=== PATIENT | female | born 1980 | race African-American/Black ===

== ENCOUNTER 2022-06-05 22:57 | Emergency (ER) | payer MEDICAID, SELFPAY ==
--- NOTE | ~2022-06-05 | XR_ITS ---
EXAMINATION: XR lumbar spine 2-3V, XR sacrum coccyx min 2V CLINICAL INFORMATION: Reason for Exam s/p fall COMPARISON: None. TECHNIQUE: 3 views of the lumbar spine and 3 views of the sacrum/coccyx FINDINGS: No acute fracture or traumatic malalignment. Minimal levoconvex lumbar curvature. Vertebral body heights maintained. Small osteophytes present throughout the spine. Mild facet arthropathy throughout the lumbar spine. Mild bilateral sacral arthrosis. Sacrum intact. Sacrococcygeal alignment maintained. Soft tissues unremarkable XR/XR sacrum coccyx min 2V IMPRESSION: * No acute findings. * Lumbar spondylosis as described.
--- NOTE | ~2022-06-05 | XR_ITS ---
EXAMINATION: XR lumbar spine 2-3V, XR sacrum coccyx min 2V CLINICAL INFORMATION: Reason for Exam s/p fall COMPARISON: None. TECHNIQUE: 3 views of the lumbar spine and 3 views of the sacrum/coccyx FINDINGS: No acute fracture or traumatic malalignment. Minimal levoconvex lumbar curvature. Vertebral body heights maintained. Small osteophytes present throughout the spine. Mild facet arthropathy throughout the lumbar spine. Mild bilateral sacral arthrosis. Sacrum intact. Sacrococcygeal alignment maintained. Soft tissues unremarkable XR/XR lumbar spine 2-3V IMPRESSION: * No acute findings. * Lumbar spondylosis as described.
[2022-06-05 23:00] VITALS: BP 142/68; PULSE 75; RESP 18; TEMP 37; O2SAT 99; BMI 28.1
--- NOTE | 2022-06-06 00:13 | ED.FALL ---
HPI - Fall General Chief Complaint: Fall Stated Complaint: Fall Time Seen by Provider: 06/06/22 00:05 Source: patient Mode of arrival: ambulatory Limitations: no limitations History of Present Illness HPI Narrative: Patient slipped on a puddle of water in mall around 15:30 complaining of pain in tailbone patient does have chronic back pain able to ambulate no motor deficit no bladder or bowel involvement also complaining of slight pain in the right wrist without any deformity no other significant injury no head injury no loss of consciousness Related Data Previous Rx's Medication Instructions Recorded ibuprofen 600 mg tablet 600 mg PO Q6H PRN fever or pain 06/06/22 #30 tabs Allergies Allergy/AdvReac Type Severity Reaction Status Date / Time meperidine [From DEMEROL] Allergy Intermediate RASH Verified 06/05/22 22:59 vancomycin [VANCOMYCIN] Allergy Intermediate REDNESS, Verified 06/05/22 22:59 ITCHING, THROAT SWELLS, hives, swelling Review of Systems Review of Systems: Yes all other systems are reviewed and are negative [facility] Social History Social History Use of substances other than those prescribed or required for medical reasons: No Advance Directives: No Advance Directives Information Provided: Yes Physical Exam Vital Signs: Vital Signs: Last Vital Signs Temp 98.6 F 06/05/22 23:00 Pulse 59 06/06/22 01:40 Resp 16 06/06/22 01:40 BP 132/73 06/06/22 01:40 Pulse Ox 99 06/05/22 23:00 O2 Del Method 06/05/22 23:00 BMI result Body Mass Index 28.1 Appearance: Alert. Oriented X3. No acute distress. Eyes: PERRLA, ENT: Pharynx normal. Oral Mucosa moist Neck: Normal inspection. Neck supple. no midline tenderness CVS: Normal heart rate and rhythm. Pulses normal. Respiratory: No respiratory distress. Equal air entry bilateral, no wheezing/rales/rhonchi Abdomen: Soft and nontender. Bowel sounds are present, no mass palpable, no CVA tenderness Skin: Skin warm and dry. Normal skin color. Normal skin turgor. Extremities: No lower extremity edema. No calf tenderness back; diffuse muscle spasm tender in coccyx area Neuro: Oriented X 3. No motor deficit. No sensory deficit.No cerebellar signs , cranial nerves II-XII intact Medications Administered Discontinued Medications Generic Name Dose Route Start Last Admin Trade Name Freq PRN Reason Stop Dose Admin Oxycodone HCl 5 mg 06/06/22 01:24 06/06/22 01:33 Oxycodone Hcl Immed Release 5 Mg Tablet PO 06/06/22 01:25 5 mg ONCE ONE Administration Medical Decision Making Medical Decision Making MDM Narrative: X-ray negative for fracture , discharge patient home on ibuprofen Discharge Plan Discharge Clinical Impression: Coccygeal contusion Patient Disposition: Home, Self-Care Additional Instructions: X-rays negative for fracture Ibuprofen for pain Use Air donut to sit on Prescriptions: New ibuprofen 600 mg tablet 600 mg PO Q6H PRN (Reason: fever or pain) Qty: 30 0RF Interventions: ED Discharge Assessment Last Done: 06/06/22 01:43 Discharge Date/Time: 06/06/22 01:44
[2022-06-06] MEDS: oxyCODONE HCl Immed Release 5 MG TABLET PO (01:33)
[2022-06-06 01:40] VITALS: BP 132/73; PULSE 59; RESP 16
--- NOTE | 2022-06-06 01:42 | PC.NURSE ---
Pt a&o, no sob or chest pain, pt medicated per Mar, pt able to ambulate with a steady gait on discharge, no sign of distress. Reviewed charge instructions with patient, pt verbalized understanding.
== END 2022-06-06 01:44 | disposition home or self-care (01) ==
PROVIDERS: Emergency Provider Internal Medicine; PCP Internal Medicine
DX: S30.0XXA Contusion of lower back and pelvis, initial encounter (principal); W18.39XA Other fall on same level, initial encounter; Y93.89 Activity, other specified; Y92.59 Other trade areas as the place of occurrence of the external cause; Y99.9 Unspecified external cause status
CPT/HCPCS: 72100; 72220; 99283; 99284

== ENCOUNTER 2024-03-16 16:21 | Emergency (ER) | payer MEDICAID, SELFPAY ==
[2024-03-16 16:41] VITALS: BP 148/79; PULSE 74; RESP 16; TEMP 36.4; O2SAT 99; BMI 21.0
--- NOTE | 2024-03-16 16:42 | ED_ITS ---
HPI - Skin/Abscess/Foreign Bdy General Chief complaint: Skin/Abscess/Foreign Body Stated complaint: body rash Time Seen by Provider: 03/16/24 19:21 Source: patient Limitations: no limitations History of Present Illness ED Provider: Kacy yoder PA-C HPI narrative: 43-year-old otherwise healthy female presents with groin rash x3 days. Patient states she has had a red itchy rash within the inguinal folds for 3 days. Denies new bath or body products, new medication new food. Denies other people in her presence with the same rash. Denies vaginal discharge, abdominal pain, or known risk for STD. No dysuria. Related Data Previous Rx's ?Medication ?Instructions ?Recorded ibuprofen 600 mg tablet 600 mg PO Q6H PRN fever or pain 06/06/22 #30 tabs Allergies Allergy/AdvReac Type Severity Reaction Status Date / Time meperidine [From DEMEROL] Allergy Intermediate RASH Verified 03/16/24 16:42 vancomycin [VANCOMYCIN] Allergy Intermediate REDNESS, Verified 03/16/24 16:42 ITCHING, THROAT SWELLS, hives, swelling Review of Systems 2 Review of Systems: Yes all other systems are reviewed and are negative Constitutional: Constitutional: Denies fatigue and Denies fever(s) Cardiovascular: Cardiovascular: Denies chest pain and Denies dyspnea Respiratory: Respiratory: Denies dyspnea Gastrointestinal: Gastrointestinal: Denies abdominal pain and Denies nausea Genitourinary: Genitourinary: Denies dysuria, Denies pelvic pain, Denies vaginal discharge and Denies vaginal odor Endocrine: Endocrine: Denies fatigue PMF Past Medical History Attestation statement: The following information was validated with the patient. Social History Social History Smoked in Last 30 Days: No Use of substances other than those prescribed or required for medical reasons: No Advance Directives: No Advance Directives Information Provided: Yes Do you have a plan to hurt others: No Plan Patient : No Physical Exam Vital Signs: Vital Signs: Last Vital Signs Temp 97.6 F 03/16/24 16:41 Pulse 74 03/16/24 16:41 Resp 16 03/16/24 16:41 BP 148/79 H 03/16/24 16:41 Pulse Ox 99 03/16/24 16:41 O2 Del Method Room Air 03/16/24 16:41 BMI result Body Mass Index 21.0 Const: Other: Alert, well-appearing Orientation/consciousness: patient oriented x3 Resp: Other: Nonlabored respiration Cardio: Other: Normal peripheral perfusion : Other: There was no rash within the inguinal region, over the external genitalia or perineum. Skin: Other: Warm dry no rash. Neuro: General: patient oriented x3, no focal motor deficits and CN's II-XI intact bilaterally Psych: Other: Cooperative Course Course Course Narrative: This is an RME: Additional HPI, ROS, PE not included below will be deferred to primary provider. RME assessment and note performed by: Erna Man PA-C This is a 43-year-old female, with a hx of depression, who presents to the ER with complaints of bilateral thigh rash. Reports rash has been present x 2days. Does report it goes into inner groin. She has no urinary symptoms. concerned for sti Plan: UA, upreg, CT/ng Medical Decision Making Medical Decision Making MDM Narrative: 43-year-old otherwise healthy female presents with groin rash x3 days. Patient states she has had a red itchy rash within the inguinal folds for 3 days. Denies new bath or body products, new medication new food. Denies other people in her presence with the same rash. Denies vaginal discharge, abdominal pain, or known risk for STD. No dysuria. No relevant chronic issues History: Per patient I have considered the following differential diagnoses: Folliculitis, contact dermatitis, allergic reaction, candidal infection, STD, Plan: The patient does not have a rash, she is hyper fixated on prominent hair follicles within this area. She is very relieved. When she presented to triage, a urinalysis and gonorrhea chlamydia screen were obtained. The patient knows that if she screens positive she will be contacted for antibiotic therapy. This is unlikely given she has no symptoms. I have independently reviewed the following tests: Labs: Urinalysis, urine not infected Lab Data Labs: Lab Results 03/16/24 Range/Units 18:11 Urine Color Yellow Urine Appearance Clear Urine pH 6.0 (5.0-9.0) Ur Specific Addison 1.025 (1.005-1.025) Urine Protein Negative (Neg-Trace) mg/dL Urine Glucose (UA) Negative (Negative) mg/dL Urine Ketones Trace (Negative) mg/dL Urine Blood Negative (Negative) Urine Nitrite Negative (Negative) Ur Leukocyte Esterase Negative (Negative) Urine Test NEGATIVE (NEGATIVE) Discharge Plan Discharge Clinical Impression: Dry skin Patient Disposition: Home, Self-Care Additional Instructions: You do not have a rash, your skin could simply be dry due to the weather. You can use an [id number] mild lotion such as Aveeno, this helps with dry skin/itchy skin. You have testing pending, you were screened for gonorrhea and chlamydia. If you test positive for either organism, you will be contacted by the facility we will send antibiotics to your pharmacy. Otherwise follow up with your primary care provider as needed. Prescriptions: No Action ibuprofen 600 mg tablet 600 mg PO Q6H PRN (Reason: fever or pain) Qty: 30 0RF Print Language: Ghanaian
[2024-03-16 18:20] LABS: Appearance Urine Clear; Color Urine Yellow; Glucose Urine UA Negative (Negative); Leukocyte Esterase Urine Negative (Negative); Nitrite Urine Negative (Negative); Specific Gravity - Urine 1.025 (1.005-1.025); Urine Blood Negative (Negative); Urine Ketones Trace mg/dL (Negative); Urine Protein Negative (Neg-Trace)
[2024-03-16 18:22] LABS: UPreg QC Valid YES; Urine Pregnancy NEGATIVE (NEGATIVE)
[2024-03-16 21:27] VITALS: BP 117/83; PULSE 64; RESP 18; TEMP 36.6; O2SAT 99
[2024-03-16 21:29] VITALS: BP 117/83; PULSE 64; RESP 18; TEMP 36.6; O2SAT 99
[2024-03-17 14:02] LABS: CT PCR NOT DETECTED (Not Detect.); NG PCR NOT DETECTED (Not Detect.)
== END 2024-03-16 21:31 | disposition home or self-care (01) ==
PROVIDERS: Physician Assistant Medical; Emergency Provider Internal Medicine; PCP Internal Medicine
DX: L50.6 Contact urticaria (principal); Z79.899 Other long term (current) drug therapy
CPT/HCPCS: 81003; 81025; 87491; 87591; 99283; 99284

== ENCOUNTER 2024-07-14 12:50 | Outpatient (REF) | payer MEDICAID, SELFPAY ==
--- NOTE | ~2024-07-14 | XR_ITS ---
EXAMINATION: XR KNEE AP STANDING CLINICAL INFORMATION: Chronic bilateral knee pain. COMPARISON: None available. TECHNIQUE: AP bilateral standing, bilateral sunrise, and lateral views of the knees were obtained. FINDINGS: RIGHT KNEE: No fracture, dislocation, or suspicious bone lesion. There is a bone island in the mid tibial metaphysis. Mild medial and lateral compartment osteoarthrosis, with more significant changes in the patellofemoral compartment involving the lateral patellar facet. There are small marginal osteophytic spurs in all 3 compartments. There is mild spurring of the tibial spines. There is no evidence of joint effusion. Soft tissues demonstrate no abnormalities. LEFT KNEE: No fracture, dislocation, or suspicious bone lesion. Mild medial and lateral compartment osteoarthrosis, with more significant changes in the patellofemoral compartment involving the lateral patellar facet. There are small marginal osteophytic spurs in all 3 compartments. There is mild spurring of the tibial spines. There is no evidence of joint effusion. Soft tissues demonstrate no abnormalities. XR/XR knee standing BI IMPRESSION: 1. No acute bony abnormalities. 2. Symmetric mild to moderate bilateral tricompartmental osteoarthrosis, most significant in the patellofemoral compartments. Electronically signed by: Aldo Byrne MD 07/14/2024 02:03 PM EDT
--- OUTSIDE RECORDS SUMMARY | 2024-07-14 15:41 | XMS_ITS | Clinical Summary ---
Author Organization [facility] Address [address] [place] [address] Care Team Providers Care Shipwright Name Role Phone Unavailable Primary Care Provider Unavailabl e Surgical History Surgery Date Site/Laterality Comments KIDNEY STONE SURGERY 06/05/2017 Right PROCEDURE: MS NEPHROLITHOTOMY REMOVAL CALCULUS OTHER SURGICAL HISTORY PROCEDURE: HISTORICAL D&C; COMMENT: x 3 SECTION PROCEDURE: HISTORICAL Medical History Medical History Date Comments Kidney stones 2014 DX:Kidney stones History of abnormal cervical Pap smear 2003 DX:History of abnormal cervical Pap smear; COMMENT: LESIA I (ascus +HPV 2002) Family History Medical History Relation Name Comments Depression Brother 1 Depression Brother 2 No Known Problems Father unknown Dementia Maternal Grandfather No Known Problems Maternal Grandmother Depression Mother No Known Problems Paternal Grandfather do esnt know No Known Problems Paternal Grandmother do esnt know Depression Sister Breast cancer Neg Hx Cervical cancer Neg Hx Colon cancer Neg Hx Ovarian cancer Neg Hx Prostate cancer Neg Hx Uterine cancer Neg Hx Relation Name Status Comments Brother 1 Alive Brother 2 Father Other Maternal Grandfather Maternal Grandmother Alive Mother Alive Paternal Grandfather Other Paternal Grandmother Other Sister Alive Social History Tobacco Use Types Packs/Day Years Used Date Smoking Tobacco: Never Smokeless Tobacco: Never Alcohol Use Standard Drinks/Week Comments No 0 (1 standard drink = 0.6 oz pur e alcohol) Comments Unknown Sex and Gender Information Value Date Recorded Sex Assigned at Not on file Legal Sex Female 9:29 AM EST Gender Identity Not on file Sexual Orientation Not on file Obstetrics History Plan of Treatment Health Maintenance Due Date Last Done Comments Breast Cancer Screening 1981 Hepatitis B Vaccines (1 of 3 - 19+ 3-dose series) 2000 Cervical Cancer Screening: P ap Smear 10/14/2022 10/15/2019 COVID-19 Vaccine (2023-2 5 season) 2023 Influenza Vaccine (Season Ended) 2024 02/11/20 20 DTaP,Tdap,and Td Vaccines (2 - Td or Tdap) 02/10/2030 02/11/2020 HIB Vaccines Aged Out No longer eligi ble based on patient's age to complete this topic HPV Vaccines Aged Out No longer eligi ble based on patient's age to complete this topic Hepatitis A Vaccines Aged Out No long er eligible based on patient's age to complete this topic IPV Vaccines Aged Out No longer eligi ble based on patient's age to complete this topic MMR Vaccines Aged Out No longer eligi ble based on patient's age to complete this topic Meningococcal ACWY Vaccine Aged Out N o longer eligible based on patient's age to complete this topic Meningococcal B Vaccine Aged Out No l onger eligible based on patient's age to complete this topic Pneumococcal Vaccine: Pediat rics (0 to 5 Years) and At-Risk Patients (6 to 64 Years) Aged Out No longer eligi ble based on patient's age to complete this topic RSV Immunization Patients Un magdiel 20 months Aged Out No longer eligible b ased on patient's age to complete this topic Varicella Vaccines Aged Out No longer eligible based on patient's age to complete this topic Procedures Procedure Name Priority Date/Time Associated Diagnosis Comments PAP SMEAR Routine 10/15/2019 from Last 3 Months or Most Recently Relevant to Health Maintenance Results * Pap smear (10/15/2019) 10/15/2019 Narrative HISTORICAL TESTING LAB RESULTING AGENCY - 10/26/2019 12:41 PM EDT [id number] THINPREP PAP, IMAGED: NEGATIVE FOR SQUAMOUS INTRAEPITHELIAL LESION AND MALIGNANCY . REACTIVE CELLULAR CHANGES. ALFREDO CLAY(ASCP) (CASE SCREENED 10 19 2019) FELIZ STUBBS M.D. , PATHOLOGIST (CASE ELECTRONICALLY SIGNED 10 22 2019) RESULT OF APTIMA HIGH RISK HPV ASSAY: HIGH RISK HPV: ??NEGATIVE (SEROTYPES 16,18,31,33,35,39,45,51,52,56,58,59,66,68) COMPLETED ON 2019-10-16 ADEQUACY: SATISFACTORY ENDOCERVICAL/TRANSFORMATION ZONE COMPONENT PRESENT. SOURCE: THINPREP PAP HPV ANY DX: ??REFLEX 16 AND 18, CERVICAL, IMAGED CLINICAL INFORMATION: HPV ANY DIAGNOSIS. HORMONES, PAP HX NEG, LMP 07/20/19 [Z12.4] us Amanda Gil MD LAB CYTOLOGY ORDERABLES Fin al Result HISTORICAL TESTING LAB RESULTING AGENCY from Last 3 Months or Most Recently Relevant to Health Maintenance
--- OUTSIDE RECORDS SUMMARY | 2024-07-14 15:41 | XMS_ITS | Encounter Summary ---
Author Organization [employer] Address [address] [place] [address] Care Team Providers Care Cook Relief Name Role Phone Gisel Wise MD Primary Care Provide r Reason for Referral * Imaging (Routine) - Authorized Specialty Diagnoses / Procedures Referred By Briseida t Referred To Contact Radiology Diagnoses Breast cancer screening by mammogram Procedures BI Mammogram Screening Tomosynthesis Bilateral Gisel Wise MD [address] [place] [phone] Phone: tel: fax: [address] Phone: tel: fax: Referral ID Status Reason Start Date Expiration Date V isits Requested Visits Authorized [id number] Authorized 07/14/2024 07/14/2025 1 1 * Consultation (Routine) - Authorized Specialty Diagnoses / Procedures Referred By Contac t Referred To Contact Obstetrics and Gynecology Diagnoses PCB (post coital bleeding) Gisel Wise MD [address] [place] [address] Phone: tel: fax: [facility] [address] 5[address] (Main Hospital Entrance) [place], [place] Phone: tel: fax: Referral ID Status Reason Start Date Expiration Date Visits Requested Visits Authorized [id number] Authorized Specialty Services Required 07/14/2024 07/14/2025 6 6 Reason for Visit * Reason Comments Follow-up Encounter Details Date Type Department Care Team ([facility] st Contact Info) Description 07/14/2024 11:30 AM EDT Office Visit [facility] [address] [place] [address] Gisel Wise MD [address] [place], [place] [phone] PCB (post coital bleeding) (Primary Dx); Tuberculosis screening; Breast cancer screening by mammogram; Initiation of Depo Provera; Bilateral chronic knee pain Social History Tobacco Use Types Packs/Day Years Used Date Smoking Tobacco: Never Smokeless Tobacco: Never Tobacco Cessation:Counseling Given: Not Answered Housing Stability Answer Date Recorded What is your housing situation today? I have tatianaanthony moses 07/14/[address] you li ve. Do you have problems with any of the following? None of the above 07/14/2024 Food Insecurity Answer Date Recorded Within the past 12 months, y ou worried that your food would run out before you got money to buy more: Often true 07/14/2024 Within the past 12 months,th e food you bought just didn't last and you didn't have enough money to get more: Often true Transportation Answer Date Recorded In the past 12 months, has l ack of transportation kept you from medical appts, meetings, work or from getting things needed for daily living? No 07/14/2024 Utilities Answer Date Recorded In the past 12 months, has t he electric, gas, oil or water company threatened to shut off services in your home? I am not sure 07/14/2024 Internet Access Answer Date Recorded Internet Access Q1 Yes 07/14/2024 Internet Access Q2 Not on file 07/14/2024 Comments Unknown Sex and Gender Information Value Date Recorded Sex Assigned at Female 01/29/2022 10:14 AM EDT Legal Sex Female 10:14 AM EDT Gender Identity Female 01/29/2022 10:14 AM EDT Sexual Orientation Straight 06/06/2022 11 :12 AM EST documented as of this encounter Last Filed Vital Signs Vital Sign Reading Time Taken Comments Blood Pressure 124/72 07/14/2024 11:38 AM EDT Pulse 72 07/14/2024 11:38 AM EDT Temperature 36.3 ??C (97.4 ??F) 07/14/2024 11:38 AM E DT Respiratory Rate 18 07/14/2024 11:38 AM EDT Oxygen Saturation 100% 07/14/2024 11:38 AM EDT Inhaled Oxygen Concentration - - Weight 72.8 kg (160 lb 9.6 oz) 07/14/2024 11:38 AM EDT Height 167.6 cm (5' 6 ) 07/14/2024 11:38 AM EDT Body Mass Index 25.92 07/14/2024 11:38 AM EDT documented in this encounter Progress Notes * Gisel Oliveira MD - 07/14/2024 11:30 AM EDT SUBJECTIVE: Deirdre Dolan is a 43 y.o. year old female who presents for Follow up . Acute Concerns: Patient has a h/o post coital bleeding for this reason she was referred to Gynecology she had serial of PAS, colposcopy and procedure done , problem resolved but now she is again having post coital bleeding Patient would like to re-initiate again depo-provera Patient today also c/o chronic bilateral knee pain reports it is sometimes difficult for her to bend her knees and do her regular activities Patient also requesting today physical exam appointment because she wants to go back to college Social History Social History Narrative Not on file Patient Active Problem List Diagnosis Abscess Cellulitis of face PCB (post coital bleeding) Tuberculosis screening Breast cancer screening by mammogram Initiation of Depo Provera Bilateral chronic knee pain No family history on file. Review of Systems Constitutional: Negative. HENT: Negative. Respiratory: Negative. Cardiovascular: Negative. Genitourinary: Postcoital bleeding Musculoskeletal: Positive for arthralgias. OBJECTIVE: Vitals: 07/14/24 1138 BP: 124/72 BP Location: Left arm Patient Position: Sitting BP Cuff Size: Adult Pulse: 72 Resp: 18 Temp: 97.4 ??F (36.3 ??C) TempSrc: Temporal SpO2: 100% Weight: 160 lb 9.6 oz (72.8 kg) Height: 5' 6 (1.676 m) Physical Exam Constitutional: Appearance: Normal appearance. Cardiovascular: Rate and Rhythm: Normal rate and regular rhythm. Pulmonary: Effort: Pulmonary effort is normal. Breath sounds: Normal breath sounds. Abdominal: General: Abdomen is flat. Palpations: Abdomen is soft. Musculoskeletal: Right lower leg: No edema. Left lower leg: No edema. Neurological: Mental Status: She is alert. Follow Up: No follow-ups on file. No current outpatient medications on file prior to visit. No current facility-administered medications on file prior to visit. Problem List Items Addressed This Visit PCB (post coital bleeding) - Primary Relevant Orders Bacterial Vaginosis Panel Chlamydia/N. Gonorrhoeae RNA, TMA, Urogenitial Referral to Obstetrics / Gynecology Tuberculosis screening Relevant Orders T-SPOT??.TB Breast cancer screening by mammogram Relevant Orders BI Mammogram Screening Tomosynthesis Bilateral Initiation of Depo Provera Medication side effects were reviewed with patient Relevant Medications medroxyPROGESTERone (Depo-Provera) 150 MG/ML injection Bilateral chronic knee pain X-rays ordered today patient will be contacted with results Relevant Orders XR Knee 4+ Views Left XR Knee 4+ Views Right documented in this encounter Miscellaneous Notes * Assessment & Plan Note - Gisel Oliveira MD - 07/14/2024 1:10 PM EDT Associated Problem(s): Bilateral chronic knee pain X-rays ordered today patient will be contacted with results * Assessment & Plan Note - Gisel Oliveira MD - 07/14/2024 1:10 PM EDT Associated Problem(s): Initiation of Depo Provera Medication side effects were reviewed with patient documented in this encounter Plan of Treatment Upcoming Encounters Date Type Department Care Team (Late st Contact Info) Description 07/27/2024 9:30 AM EDT Clinical Support [facility] [address] [place] [address] Scheduled Orders Name Type Priority Associated Diagnoses Orde r Schedule Bacterial Vaginosis Panel Microbiology Routine PCB (post coital bleeding) Ordered: 07/14/2024 Chlamydia/N. Gonorrhoeae RNA, TMA, Urogenitial Microbiology Routine PCB (post coital bleeding) Ordered: 07/14/2024 T-SPOT??.TB Lab Routine Tuberculosis screening Expected: 07/14/2024 (Approximate), Expires: 07/14/2025 BI Mammogram Screening Tomosynthesis Bilateral Imaging Routine Breast cancer screening by mammogram Expected: 07/14/2024, Expires: 09/13/2025 XR Knee 4+ Views Left Imaging Routine Bilateral chronic knee pain Expected: 07/14/2024, Expires: 07/14/2025 Scheduled Referrals Name Type Priority Associated Diagnoses Order Schedule Referral to Obstetrics / Gynecology Outpatient Referral Routine PCB (post coital bleeding) Expected: 07/14/2024 (Approximate), Expires: 07/14/2025 documented as of this encounter Procedures Procedure Name Priority Date/Time Associated Diagnosis Comments XR KNEE BILATERAL AP STANDING Routine 07/14/2024 12:50 PM EDT documented in this encounter Results * XR KNEE BILATERAL AP STANDING (07/14/2024 12:50 PM EDT) Anatomical Region Laterality Modality Lower Extremities, Knee Bilateral Radiogra phic Imaging 07/14/2024 12:5 0 PM EDT Narrative 07/14/2024 2:06 PM EDT ?[facility] ?[address] ?[place] [address] ?XRay Report ? Signed ? Patient: Magdaleno,Deirdre W ?MR#: [id number] ?? 078 ? : 1980 ?Acct:[id number] ? Age/Sex: 43 / F ?ADM Date: 04/15/25 ? Loc: HO.HHCX ? Attending Dr: Gisel Oliveira MD ? Ordering Physician: Gisel Wise MD ?? Date of Service: 07/14/24 ?? Procedure(s): XR knee standing BI ?? Accession Number(s): [id number] ? cc: Gisel Wise MD ? EXAMINATION: ?? XR KNEE AP STANDING ? CLINICAL INFORMATION: ?? Chronic bilateral knee pain. ? COMPARISON: ?? None available. ? TECHNIQUE: ?? AP bilateral standing, bilateral sunrise, and lateral views of the ?? knees were obtained. ? FINDINGS: ?? RIGHT KNEE: ?? No fracture, dislocation, or suspicious bone lesion. There is a bone ?? island in the mid tibial metaphysis. ?? Mild medial and lateral compartment osteoarthrosis, with more ?? significant changes in the patellofemoral compartment involving the ?? lateral patellar facet. There are small marginal osteophytic spurs in ?? all 3 compartments. There is mild spurring of the tibial spines. ? There is no evidence of joint effusion. Soft tissues demonstrate no ?? abnormalities. ? LEFT KNEE: ?? No fracture, dislocation, or suspicious bone lesion. ?? Mild medial and lateral compartment osteoarthrosis, with more ?? significant changes in the patellofemoral compartment involving the ?? lateral patellar facet. There are small marginal osteophytic spurs in ?? all 3 compartments. There is mild spurring of the tibial spines. ? There is no evidence of joint effusion. Soft tissues demonstrate no ?? abnormalities. ? XR/XR knee standing BI ?? IMPRESSION: ?? 1. No acute bony abnormalities. ?? 2. Symmetric mild to moderate bilateral tricompartmental ?? osteoarthrosis, most significant in the patellofemoral compartments. ? Electronically signed by: ??Aldo Byrne MD ??07/14/2024 02:03 PM EDT RP ? Dictated By: ?Aldo Byrne MD ? Signed By: ?<Electronically signed by Aldo Byrne MD in OV> ?07/14/24 1403 ? DD/ 1250 ? TD/TT: 07/14/24 1300 ? Manager Of It: ? Procedure Note Michaela, Breezy - 07/14/[address] [address] XRay Report Signed Patient: Deirdre Dolan WMR#: [id number] : 1980Acct:[id number] Age/Sex: 43 / FADM Date: 07/14/24 Loc: HO.HHCX Attending Dr: Gisel Oliveira MD Ordering Physician: Gisel Wise MD Date of Service: 07/14/24 Procedure(s): XR knee standing BI Accession Number(s): [id number] cc: Gisel Wise MD EXAMINATION: XR KNEE AP STANDING CLINICAL INFORMATION: Chronic bilateral knee pain. COMPARISON: None available. TECHNIQUE: AP bilateral standing, bilateral sunrise, and lateral views of the knees were obtained. FINDINGS: RIGHT KNEE: No fracture, dislocation, or suspicious bone lesion. There is a bone island in the mid tibial metaphysis. Mild medial and lateral compartment osteoarthrosis, with more significant changes in the patellofemoral compartment involving the lateral patellar facet. There are small marginal osteophytic spurs in all 3 compartments. There is mild spurring of the tibial spines. There is no evidence of joint effusion. Soft tissues demonstrate no abnormalities. LEFT KNEE: No fracture, dislocation, or suspicious bone lesion. Mild medial and lateral compartment osteoarthrosis, with more significant changes in the patellofemoral compartment involving the lateral patellar facet. There are small marginal osteophytic spurs in all 3 compartments. There is mild spurring of the tibial spines. There is no evidence of joint effusion. Soft tissues demonstrate no abnormalities. XR/XR knee standing BI IMPRESSION: 1. No acute bony abnormalities. 2. Symmetric mild to moderate bilateral tricompartmental osteoarthrosis, most significant in the patellofemoral compartments. Electronically signed by: Aldo Byrne MD 07/14/2024 02:03 PM EDT Dictated By: Aldo Byrne MD Signed By: <Electronically signed by Aldo Byrne MD in OV> 07/14/24 1403 DD/ 1250 TD/TT: 07/14/24 1300 Manager Of It: us Gisel Oliveira MD IMG XR PROCEDURES Fin al Result documented in this encounter Visit Diagnoses Diagnosis PCB (post coital bleeding)- Primary Postcoital bleeding Tuberculosis screening Screening examination for pulmonary tuberculosis Breast cancer screening by mammogram Initiation of Depo Provera Bilateral chronic knee pain documented in this encounter Care Teams Cook Relief Relationship Specialty Start Date End Date Gisel Wise MD [address] [place] [phone] PCP - General Family Medicine 07/08/18 documented as of this encounter
--- OUTSIDE RECORDS SUMMARY | 2024-07-14 15:41 | XMS_ITS | Encounter Summary ---
Author Organization [employer] Address [address] [place] [address] Care Team Providers Care Golf Club Manager Name Role Phone Gisel Wise MD Primary Care Provide r Encounter Details Date Type Department Care Team (Latest Contact Info) Description 07/14/2024 Travel Social History Tobacco Use Types Packs/Day Years Used Date Smoking Tobacco: Never Smokeless Tobacco: Never Housing Stability Answer Date Recorded What is [...] AM EST documented as of this encounter Plan of Treatment Upcoming Encounters Date Type Department Care Team (Late st Contact Info) Description 07/27/2024 9:30 AM EDT Clinical Support [facility] [address] [place] [address] documented as of this encounter Visit Diagnoses Not on filedocumented in this encounter Care Teams Golf Club Manager Relationship Specialty Start Date End Date Gisel Wise MD [address] [place] [address] PCP - General Family Medicine 07/08/18 documented as of this encounter
--- OUTSIDE RECORDS SUMMARY | 2024-07-14 15:41 | XMS_ITS | Clinical Summary ---
Author Organization [employer] Address [address] [place] [address] Care Team Providers Care Unix Architect Name Role Phone Gisel Wise MD Primary Care Provide r Allergies Active Allergy Reactions Criticality Noted Date Comments Meperidine 03/20/2024 hives, throat closes Vancomycin Hives High 11/08/2011 hives, throat closes Medications medroxyPROGESTER one (Depo-Provera) 150 MG/ML injectionIndicat ions:Initiation of Depo Provera Inject 1 mL (150 mg) into the muscle every 3 (three) months. 1 mL 3 07/14/2024 Active Hospital, Clinic, or Other Facility Administered Medication Ordered Dose Route Frequency Start Date End Date Status medroxyPROGESTERon e (Depo-Provera) injection 150 mgIndications:Init iation of Depo Provera 150 mg IM Every 3 months 07/14/2024 Discontinued Active Problems Problem Noted Date Diagnosed Date PCB (post coital bleeding) 07/14/2024 Tuberculosis screening 07/14/2024 Breast cancer screening by mammogram 07/14/2024 Initiation of Depo Provera 07/14/2024 Assessment & Plan (07/14/2024 1:10 PM EDT): Medication side effects were reviewed with patient Bilateral chronic knee pain 07/14/2024 Assessment & Plan (07/14/2024 1:10 PM EDT): X-rays ordered today patient will be contacted with results Abscess 03/20/2024 Assessment & Plan (03/28/2024 6:16 PM EST): Not fluctuant at this time, may require I &D, pt to apply warm compresses Due to size and sig erythema will start abx, Pt aware to seek urgent care should pt develop worsening symptoms or fails to improve Cellulitis of face 03/20/2024 Encounters Date Type Department Care Team Description 07/14/2024 11:30 AM EDT Office Visit [facility] [address] [place] [address] Gisel Wise MD PCB (post coital bleeding) (Primary Dx); Tuberculosis screening; Breast cancer screening by mammogram; Initiation of Depo Provera; Bilateral chronic knee pain 07/14/2024 Travel 07/07/2024 Patient Outreach [facility] [address] [place], [place] [id number] Gisel Wise MD Pre-visit Planning ([facility] unable to reach [facility]) 07/07/2024 Telephone [facility] [address] [place] [address] Gisel Wise MD Chart Prep 06/12/2024 Population Health Risk Score [facility] () Department [address] [place] [phone] Provider, Population Health Generic from Last 3 Months Social History Tobacco Use Types Packs/Day Years Used Date Smoking Tobacco: Never Smokeless Tobacco: Never Tobacco Cessation:Counseling Given: Not Answered Housing Stability Answer Date Recorded What is your housing situation today? I have tatiana moses 07/14/[address] you [...] Orientation Straight 06/06/2022 11 :12 AM EST Last Filed Vital Signs Vital Sign Reading [...] Mass Index 25.92 07/14/2024 11:38 AM EDT Plan of Treatment Upcoming Encounters Date Type Department Care Team (Late st Contact Info) Description 07/27/2024 9:30 AM EDT Clinical Support [facility] [address] [place] [address] Health Maintenance Due Date Last Done Comments Depression Screening 1980 HIV Screening 1980 Alcohol/Substance Use Screening 1993 Family Planning (PISQ) 1996 Hepatitis C Screening 11/21/1999 HPV Vaccines (2 - 3-dose series) 11/12/2006 10/15/2006 Mammogram 2021 COVID-19 Vaccine ( season) 2023 10/12/2021, 05/12/2021, 04/20/2021 Influenza Vaccine (#1) 2023 , 02/11/2020, 02/04/2019, Additional history exists SDOH Screening 07/14/2025 07/14/2024 Tobacco Screening 07/14/2025 07/14/2024 Cervical Cancer Screening 01/14/2026 HPV/Cotest 01/14/2026 01/14/2023, 0604/2021, 09/16/2018 Pap Smear 01/14/2026 01/14/2023, 09/19/2021 DTaP/Tdap/Td Vaccines (9 - Td or Tdap) 07/13/2031 07/12/2021, 02/11/2020, 11/08/2011, Additional history exists Zoster Vaccines (1 of 2) 11/21/2031 RSV Patients and Patients Aged 60 years or older (1 - 1-dose 75+ series) 2056 IPV Vaccines Completed 08/20/1986, 07/30, 04/21/1982, Additional history exists Hepatitis B Vaccines Completed 09/14/1996, 05/19/1996, 01/20/1996 HIB Vaccines Aged Out No longer eligi ble based on patient's age to complete this topic Hepatitis A Vaccines Aged Out No long er eligible based on patient's age to complete this topic Meningococcal Vaccine Aged Out No martha tona eligible based on patient's age to complete this topic Pneumococcal Vaccine: Pediatrics (0 to 5 Years) and At-Risk Patients (6 to 49) Years) Aged Out No longer eligible based on patient's age to complete this topic RSV under 20 months Aged Out No longe r eligible based on patient's age to complete this topic Rotavirus Vaccines Aged Out No longer eligible based on patient's age to complete this topic Procedures Procedure Name Priority Date/Time Associated Diagnosis Comments XR KNEE BILATERAL AP STANDING Routine 07/14/2024 12:50 PM EDT HM PAP/HPV Routine 01/14/2023 from Last 3 Months or Most Recently Relevant to Health Maintenance Results * XR KNEE BILATERAL AP STANDING (07/14/2024 12:50 PM EDT) Anatomical Region Laterality Modality Lower Extremities, Knee Bilateral Radiogra phic Imaging 07/14/2024 12:5 0 PM EDT Narrative 07/14/2024 2:06 PM EDT ?[facility] ?[address] ?[place] [address] ?XRay Report ? Signed ? Patient: Magdaleno,Deirdre W ?MR#: [id number] ?? 078 ? : 1980 ?Acct:[id number] ? Age/Sex: 43 / F ?ADM Date: 07/14/24 ? Loc: HO.HHCX ? Attending Dr: Gisel Oliveira MD ? Ordering Physician: Gisel Wise MD ?? Date of Service: 07/14/24 ?? Procedure(s): XR knee standing BI ?? Accession Number(s): [id number] ? cc: Gisel Wise MD ? EXAMINATION: [...] DD/ 1250 ? TD/TT: 07/14/24 1300 ? Shipyard Painting Supervisor: ? Procedure Note Michaela, Breezy - 07/14/[address] [address] XRay Report Signed Patient: Deirdre Dolan WMR#: [id number] : 1980Acct:[id number] Age/Sex: 43 / FADM Date: 07/14/24 Loc: .HHCX Attending Dr: Gisel Oliveira MD Ordering Physician: Gisel Wise MD Date of Service: 07/14/24 Procedure(s): XR knee standing BI Accession Number(s): [id number] cc: Gisel Wise MD EXAMINATION: XR KNEE [...] Aldo Byrne MD 07/14/2024 02:03 PM EDT RP Dictated By: Aldo Byrne MD Signed By: <Electronically signed by Aldo Byrne MD in OV> 07/14/24 1403 DD/ 1250 TD/TT: 07/14/24 1300 Shipyard Painting Supervisor: Gisel Oliveira MD IMG XR PROCEDURES Fin al Result * HM PAP/HPV (01/14/2023) Pap Smear 1. NILM 1. NILM HPV Undetected Undetected, Indeterminate , Quantitative, Not Detected Historical Provider HEALTH MAINTENANCE Final Result from Last 3 Months or Most Recently Relevant to Health Maintenance [facility] Care Teams Unix Architect Relationship Specialty Start Date End Date Gisel Wise MD [address] [place] [id number] PCP - General Family Medicine 07/08/18
[2024-07-15 03:32] LABS: CT PCR NOT DETECTED (Not Detect.); NG PCR NOT DETECTED (Not Detect.)
[2024-07-15 10:12] LABS: Bacterial Vaginosis PCR POSITIVE (Negative); Candida Group PCR NOT DETECTED (Not Detect); Candida glab krusei PCR NOT DETECTED (Not Detect); Trichomonas vaginalis PCR NOT DETECTED (Not Detect)
== END 2024-07-14 12:51 | disposition home or self-care (01) ==
LOC: HO.HHCX 12:50
PROVIDERS: Visit Provider Internal Medicine
DX: M25.561 Pain in right knee (principal); M25.562 Pain in left knee; N93.0 Postcoital and contact bleeding; Z11.3 Encounter for screening for infections with a predominantly sexual mode of transmission
CPT/HCPCS: 73565; 81515; 87491; 87591

== ENCOUNTER → 2024-07-14 12:50 | Outpatient (BNV) | payer MEDICAID, SELFPAY | PROVIDERS: Visit Provider Radiology Diagnostic Radiology | DX: M25.561 Pain in right knee (principal); M25.562 Pain in left knee | CPT/HCPCS: 73565 ==

== ENCOUNTER 2024-09-30 07:52 | Outpatient (AMB) | payer MEDICAID, SELFPAY ==
--- NOTE | 2024-09-30 08:00 | MHC.OFFVIS ---
Vital Signs 09/30/24 08:01 Height 5 ft 6 in Weight 130 lb BMI 21.0 Intake Visit Reasons: Right knee pain and giving way Intake Note: Deirdre is a 43 year old female who presents with complaints of progressively worsening right knee pain and giving way. She also reports left knee pain. At this point her left knee pain is tolerable to her. She did injure her right knee approximately 1 year ago when she fell down stairs. She twisted her knee and had acute onset of pain. She has failed the last 6 weeks of conservative treatment which has included Tylenol, anti-inflammatory medicines, a home exercise program and physical therapy exercises. Most of the pain is along the medial aspect of her knee. She states that her right knee gives out several times per day. Allergies meperidine (From DEMEROL) Allergy (Intermediate, Verified 09/30/24 08:01) RASH vancomycin (VANCOMYCIN) Allergy (Intermediate, Verified 09/30/24 08:01) REDNESS, ITCHING, THROAT SWELLS, hives, swelling Medication List - Last Reconciled 09/30/24 by Silvano Bobby MD dextromethorphan-bupropion 45-105 mg ER (Auvelity) PO quetiapine 25 mg PO BEDTIME PRN Physical Exam Vital Signs: BMI result Body Mass Index 21.0 Const Other: Well-nourished well-developed very friendly female awake alert and oriented x3 in no acute distress Extrem Other: Bilateral lower extremity examination shows good capillary refill, no skin lesions noted, normal sensation light touch Right knee examination shows a minimal effusion, minimal crepitus with range of motion, tenderness along her medial joint line, positive Varsha's test, no instability Results Reviewed Results Reviewed: X-rays of the patient's bilateral knees taken previously show minimal joint space narrowing, no acute bony abnormalities Assessment & Plan Assessment & Plan (1) Tear of medial meniscus of right knee: Code(s): S83.241A - Other tear of medial meniscus, current injury, right knee, initial encounter Category: Medical Plan Ms. Dolan presents with right knee pain and mechanical symptoms most likely due to a medial meniscus tear. Thus, I will send the patient for an MRI of her right knee for further evaluation. I will see her back once the MRI is completed to discuss the findings and treatment options. Feel free to call me at any time should questions regarding her orthopedic management arise. Thank you very much for asking me to see this very friendly patient. I spent 21 minutes in reviewing the patient's records and imaging studies, seeing the patient and documenting in the medical record. Orders: Orders MR knee RT wo con Today S83.241A - Other tear of medial meniscus, current injury, right knee, initial encounter Medications: Discontinued ibuprofen Discontinued Reason: Patient no longer taking 600 mg PO Q6H PRN 30 tabs 0RF fever or pain Coding Level of Care Code New Pt Level 3 (64323) Complex EM visit Add On G2211 Diagnoses Tear of medial meniscus of right knee S83.241A
[2024-09-30 08:01] VITALS: BMI 21.0
== END 2024-09-30 08:22 | disposition home or self-care (01) ==
LOC: HO.HOS 07:53
PROVIDERS: Visit Provider Orthopaedic Surgery
DX: S83.241A Other tear of medial meniscus, current injury, right knee, initial encounter (principal)
CPT/HCPCS: 99203

== ENCOUNTER → 2024-09-30 07:52 | Outpatient (BNVA) | payer MEDICAID, SELFPAY | PROVIDERS: Visit Provider Orthopaedic Surgery | DX: M25.561 Pain in right knee (principal); M25.562 Pain in left knee; S83.241A Other tear of medial meniscus, current injury, right knee, initial encounter | CPT/HCPCS: 99202 ==

== ENCOUNTER 2024-10-13 21:06 | Emergency (ER) | payer MEDICAID, SELFPAY ==
[2024-10-13 21:09] VITALS: BP 135/99; PULSE 93; RESP 17; TEMP 36.7; O2SAT 99; BMI 26.0
--- NOTE | 2024-10-14 01:00 | ED.SKABFB ---
HPI - Skin/Abscess/Foreign Bdy General Chief complaint: Skin/Abscess/Foreign Body Stated complaint: Vaginal abscess Time Seen by Provider: 10/14/24 00:28 Source: patient Mode of arrival: ambulatory Limitations: no limitations History of Present Illness ED Provider: Aldo KAHN HPI narrative: The patient is a 43-year-old female presenting to the ED reporting earlier today she noted a painful lump on the edge of her ?vagina lip?, patient reports she noted a white spot at the center of the lump, patient reports taking a hot shower and attempted to express purulence from the area. Patient reports she was able to successfully express purulent material from the area but had worsening pain and presents to the ED for evaluation. The patient reports she had 1 previous similar episode many years ago which required incision and drainage of her inner right thigh. Patient denies any history of previous Bartholin cyst. Patient denies associated fever/chills, nausea, vomiting or other systemic complaint. The patient denies any urinary symptoms or vaginal discharge. Related Data Home Medications ?Medication ?Instructions ?Recorded ?Confirmed dextromethorphan IR 45 PO 09/30/24 09/30/24 mg-bupropion ER 105 mg biphasic tablet (Auvelity) quetiapine 25 mg tablet 25 mg PO BEDTIME PRN insomnia 09/30/24 09/30/24 Previous Rx's ?Medication ?Instructions ?Recorded acetaminophen 500 mg capsule 1,000 mg (2 x 500 mg) PO .q8 PRN 10/14/24 fever or pain #30 caps cephalexin 500 mg capsule 500 mg PO BID #10 caps 10/14/24 fluconazole 150 mg tablet 150 mg PO Q3D 2 doses #2 tabs 10/14/24 ibuprofen 600 mg tablet 600 mg PO Q8H PRN fever or pain 10/14/24 #30 tabs Allergies Allergy/AdvReac Type Severity Reaction Status Date / Time meperidine (From DEMEROL) Allergy Intermediate RASH Verified 10/13/24 21:12 vancomycin (VANCOMYCIN) Allergy Intermediate REDNESS, Verified 10/13/24 21:12 ITCHING, THROAT SWELLS, hives, swelling Review of Systems Review of Systems: Yes all other systems are reviewed and are negative PMFSH Social History Social History Advance Directives: No Advance Directives Information Provided: No Do you have a plan to hurt others: No Plan Physical Exam Vital Signs: Vital Signs: Last Vital Signs Temp 98.1 F 10/13/24 21:09 Pulse 93 10/13/24 21:09 Resp 17 10/13/24 21:09 BP 135/99 H 10/13/24 21:09 Pulse Ox 99 10/13/24 21:09 O2 Del Method Room Air 10/13/24 21:09 BMI result Body Mass Index 26.0 CONSTITUTIONAL: The patient appears non-toxic, well nourished and in no acute distress. Vital signs as documented. HEAD: Atraumatic, normocephalic. EYES: EOMs grossly intact, pupils equal, conjunctiva clear, no exudate. ENT: Nares patent, no discharge. Airway patent, no audible stridor, visible mucosa is pink and moist without noted lesions. NECK: trachea is midline, no obvious masses or gross abnormalities. CHEST: Symmetric movement, normal appearance. LUNGS: Non-labored work of breathing. CARDIAC: No evidence of hypoperfusion. ABDOMEN: Nondistended, no obvious injury. : Exam performed with female ED binder technician as color room attendant. Exam of the external vaginal orifice reveals a approximately 3 mm diameter area of swelling with active purulent drainage noted to the anterior aspect of the right labia majora abutting the mucosal border, with additional drainage with light manual expression. No swelling of the labia minora, no evidence of Bartholin cyst. No other lesions noted. EXTREMITIES: Moves all extremities spontaneously without reported pain. No obvious injury or deformity noted. NEURO: Alert and oriented x3, CN II-XII appear grossly intact. Cerebellar Functioning grossly intact. Speech clear and appropriate. SKIN: Warm, dry, color appropriate. No rashes or lesions noted. Medications Administered Discontinued Medications Generic Name Dose Route Start Last Admin Trade Name Freq PRN Reason Stop Dose Admin Acetaminophen 975 mg 10/14/24 00:56 10/14/24 01:18 Acetaminophen 325 Mg Tablet PO 10/14/24 00:57 975 mg ONCE ONE Administration Cephalexin HCl 500 mg 10/14/24 00:56 10/14/24 01:19 Cephalexin 500 Mg Capsule PO 10/14/24 00:57 500 mg ONCE ONE Administration Ibuprofen 600 mg 10/14/24 00:56 10/14/24 01:19 Ibuprofen 600 Mg Tablet PO 10/14/24 00:57 600 mg ONCE ONE Administration Medical Decision Making Medical Decision Making [facility] Narrative: 1:14 AM 10/14/2024 (Dru KAHN): The patient is a 43-year-old female presenting to the ED for evaluation of swelling and pain in the area of the right labia majora. The patient's exam is consistent with a small abscess, there is no evidence of Bartholin cyst, the area is actively draining, and easily expressible, no indication for incision and drainage. We will send culture and treat prophylactically with cephalexin. Patient has been educated to continue light manual expression to prevent closure and subsequent need for incision and drainage. Patient educated on reasons to return to the emergency department. Admission/Observation Consideration of admission/observation: Escalation of care including admission/observation considered Prescription Management I considered prescription management with: Pain Medication and Antibiotic Discharge Plan Discharge Clinical Impression: Abscess of groin, right Patient Disposition: Home, Self-Care Instructions: Abscess (ED) Additional Instructions: Thank you for choosing [facility] Emergency Department for your care today. Your pain today appears to be related to an abscess abutting the mucosal edge of the right labia majora. This may be related to an ingrown hair. Thankfully the area was small and already draining and thus did not require incision and drainage. At this time there is no evidence of an acute process requiring admission to the hospital or continued ED observation, and it is safe to discharge you home. Please continue to apply warm compresses, take hot showers, and keep the area clean. You should also continue to gently express any purulent drainage from the area as we discussed. Please take cephalexin twice daily as prescribed until it is finished. You may take alternating (staggered) doses of ibuprofen 600mg and Tylenol 1000mg every 4 hours as needed for any additional pain. Please follow up with your primary care physician for re-evaluation, additional management of your symptoms, and continued preventative care. If you do not have a primary care physician, please call the [facility] at [phone] to establish a new primary care physician. While waiting to establish your new primary care physician, you can call our [facility] at [phone] for non-emergency needs. Please return to the emergency department if you develop a severe or sudden increase in the size of your abscess, a fever over 100.4 that does not improve with Tylenol or Ibuprofen, recurrent vomiting, or any other new or worsening symptoms or concerns. Prescriptions: New ibuprofen 600 mg tablet 600 mg PO Q8H PRN (Reason: fever or pain) Qty: 30 0RF acetaminophen 500 mg capsule 1,000 mg PO .q8 PRN (Reason: fever or pain) Qty: 30 0RF cephalexin 500 mg capsule 500 mg PO BID Qty: 10 0RF fluconazole 150 mg tablet 150 mg PO Q3D Qty: 2 0RF No Action quetiapine 25 mg tablet 25 mg PO BEDTIME PRN (Reason: insomnia) Auvelity 45-105 mg tablet, IR and ER, biphasic PO Referrals: Gisel Wise MD [Primary Care Provider, Internal Medicine] Clinical Impression: Abscess of groin, right Print Language: Portuguese
[2024-10-14 01:28] VITALS: BP 129/85; PULSE 69; RESP 14; TEMP 36.9; O2SAT 99
== END 2024-10-14 01:29 | disposition home or self-care (01) ==
PROVIDERS: Emergency Provider Emergency Medicine; PCP Internal Medicine
DX: L02.214 Cutaneous abscess of groin (principal); N89.8 Other specified noninflammatory disorders of vagina
CPT/HCPCS: 87070; 87205; 99283

== ENCOUNTER 2024-10-17 08:51 | Outpatient (REF) | payer MEDICAID, SELFPAY ==
--- NOTE | ~2024-10-17 | MR_ITS ---
CLINICAL HISTORY: S83.241A - Other tear of medial meniscus, current injury, right knee, in... MR right knee without gadolinium Comparison: CR/SR - XR KNEE STANDING BI - 07/14/24 13:12 EDT Findings: No fractures. No pathologic bone lesions. Lateral patellar subluxation. Lateral ventral trochlear prominence. Mild subchondral edema within the patellar apex and lateral patellar facet as well as the lateral femoral trochlea. Moderate tricompartmental periarticular osteophyte formation. Severe articular cartilage loss overlying the lateral patellar facet and lateral femoral trochlea. Small knee joint effusion. Mild edema within the superolateral aspect of the infrapatellar fat pad. Trace Jorge's cyst. Cruciate and collateral ligaments are intact. Patellar retinacula and iliotibial band are intact. No tears of the quadriceps, patellar, popliteus, or flexor tendons. There is moderate T2 signal elevation within the quadriceps tendon at the patellar insertion site. There is multifocal low-grade partial-thickness tearing of the distal quadriceps tendon. There is linear horizontal high T2 signal intensity traverses the middle and peripheral thirds of the posterior horn medial meniscus, demonstrating inferior articular surface extension, indicating horizontal tearing. Linear horizontal high T2 signal intensity traverses the inner, middle, and peripheral thirds of the lateral meniscal body, demonstrating free edge extension, indicating horizontal tearing. IMPRESSION: 1. Medial and lateral meniscal tearing. 2. Tricompartmental osteoarthritis with associated articular cartilage loss. 3. Findings consistent with lateral patellofemoral friction syndrome in the appropriate clinical setting. 4. Quadriceps tendinopathy with superimposed low-grade tears. 5. Knee joint effusion. This document has been electronically signed by: Georgia Salas MD on 10/19/2024 16:53:44
== END 2024-10-17 08:52 | disposition home or self-care (01) ==
LOC: HO.MRI 08:51
PROVIDERS: PCP Internal Medicine; Visit Provider Orthopaedic Surgery
DX: S83.241D Other tear of medial meniscus, current injury, right knee, subsequent encounter (principal)
CPT/HCPCS: 73721

== ENCOUNTER → 2024-10-17 09:02 | Outpatient (BNV) | payer MEDICAID, SELFPAY | PROVIDERS: PCP Internal Medicine; Visit Provider Radiology Diagnostic Radiology | DX: S83.241A Other tear of medial meniscus, current injury, right knee, initial encounter (principal); M25.461 Effusion, right knee; M17.11 Unilateral primary osteoarthritis, right knee | CPT/HCPCS: 73721 ==

== ENCOUNTER 2024-10-28 08:15 | Outpatient (AMB) | payer MEDICAID, SELFPAY ==
[2024-10-28 08:16] VITALS: BP 102/57; PULSE 67; BMI 26.6
--- NOTE | 2024-10-28 08:16 | MHC.OFFVIS ---
Vital Signs 10/28/24 08:16 Height 5 ft 6 in Weight 165 lb BMI 26.6 BP 102/57 L Blood Pressure Location Rt brachial Position Sitting Pulse 67 Intake Visit Reasons: Bilateral knee pain Intake Note: Deirdre is a 43 year old female who presents with complaints of progressively worsening bilateral knee pains. She describes her pains as sharp in nature. She denies any locking or giving way. She states that her pains have gotten worse over the last few years in spite of continued non operative treatments. She has failed the last 3 months of conservative treatment which has included Tylenol, anti-inflammatory medicines, physical therapy exercises and a home exercise program. She has had cortisone injections in the past which gave her no relief. At this point her bilateral knee pains are interfering with her activities of daily living and her ability to sleep well through the night. Allergies meperidine (From DEMEROL) Allergy (Intermediate, Verified 10/28/24 08:18) RASH vancomycin (VANCOMYCIN) Allergy (Intermediate, Verified 10/28/24 08:18) REDNESS, ITCHING, THROAT SWELLS, hives, swelling Medication List - Last Reconciled 10/28/24 by Silvano Bobby MD acetaminophen 1,000 mg (2 x 500 mg) PO .q8 PRN cephalexin 500 mg PO BID dextromethorphan-bupropion 45-105 mg ER (Auvelity) PO fluconazole 150 mg PO Q3D 2 doses ibuprofen 600 mg PO Q8H PRN quetiapine 25 mg PO BEDTIME PRN Physical Exam Vital Signs: Last Vital Signs Pulse 67 10/28/24 08:16 BP 102/57 L 10/28/24 08:16 BMI result Body Mass Index 26.6 Const Other: Well-nourished well-developed very friendly female awake alert and oriented x3 in no acute distress Extrem Other: Bilateral knee examination shows minimal effusions, palpable crepitus with range of motion, pain with range of motion, no instability Results Reviewed Results Reviewed: X-rays of the patient's bilateral knee show joint space narrowing, subchondral sclerosis, no acute bony abnormalities MRI of the patient's right knee shows moderate degenerative changes within the patellofemoral joint, no acute bony abnormalities Assessment & Plan Assessment & Plan (1) Pain in both knees: Code(s): M25.561 - Pain in right knee; M25.562 - Pain in left knee (2) Osteoarthritis of left knee: Code(s): M17.12 - Unilateral primary osteoarthritis, left knee Category: Medical (3) Osteoarthritis of right knee: Code(s): M17.11 - Unilateral primary osteoarthritis, right knee Category: Medical Plan Ms. Dolan presents with bilateral knee pains due to osteoarthritis. I had a lengthy discussion with the patient regarding the treatment options. She wishes to hold off on surgery if at all possible. I agree with this plan. I will see if the patient's insurance company will cover a viscosupplementation injection, such as Durolane, for both of her knees. I will see her back once the injections are available. Feel free to call me at any time should questions regarding her orthopedic management arise. I spent 21 minutes in reviewing the patient's records and imaging studies, seeing the patient and documenting in the medical record. Coding Level of Care Code Est Pt Level 3 (31280) Complex EM visit Add On G2211 Diagnoses Pain in both knees M25.561; M25.562 Osteoarthritis of left knee M17.12 Osteoarthritis of right knee M17.11
--- OUTSIDE RECORDS SUMMARY | 2024-10-28 08:18 | XMS_ITS | Clinical Summary ---
Author Organization [facility] Address [address] [place] [address] Care Team Providers Care Certified Maintenance Welder Name Role Phone Unavailable Primary Care Provider Unavailabl e Surgical History Surgery Date Site/Laterality Comments KIDNEY STONE SURGERY 06/05/2017 Right PROCEDURE: [place] NEPHROLITHOTOMY REMOVAL CALCULUS OTHER SURGICAL HISTORY PROCEDURE: [...] 10/15/2019 COVID-19 Vaccine (2023-2 5 season) 2023 Depression Screening 04/01/2024 Influenza Vaccine (#1) 2024 02/11/2020 DTaP,Tdap,and Td Vaccines (2 - Td or [...] 5 Years) and At-Risk Patients (6 to 49 Years) Aged Out No longer eligi ble [...] RESULTING AGENCY - 10/26/2019 12:41 PM EDT [id number] THINPREP PAP, IMAGED: NEGATIVE FOR SQUAMOUS INTRAEPITHELIAL LESION AND MALIGNANCY . REACTIVE CELLULAR CHANGES. ALFREDO CLAY(ASCP) (CASE SCREENED 10 19 2019) FELIZ STUBBS M.D. , PATHOLOGIST (CASE ELECTRONICALLY SIGNED 10 22 2019) RESULT OF APTIMA HIGH RISK HPV ASSAY: HIGH RISK HPV: NEGATIVE (SEROTYPES 16,18,31,33,35,39,45,51,52,56,58,59,66,68) COMPLETED ON 2019-10-16 ADEQUACY: SATISFACTORY ENDOCERVICAL/TRANSFORMATION ZONE COMPONENT PRESENT. SOURCE: THINPREP PAP HPV ANY DX: REFLEX 16 AND 18, CERVICAL, IMAGED CLINICAL INFORMATION: HPV ANY DIAGNOSIS. HORMONES, PAP HX NEG, LMP 07/20/19 [Z12.4] us Amanda Gil MD LAB CYTOLOGY ORDERABLES Fin al Result HISTORICAL TESTING LAB RESULTING AGENCY from Last 3 Months or Most Recently Relevant to Health Maintenance
--- OUTSIDE RECORDS SUMMARY | 2024-10-28 08:18 | XMS_ITS | Clinical Summary ---
Author Organization [employer] Address [address] [facility] 7[address] [place] [address] Care Team Providers Care Computational Chemist Name Role Phone Gisel Wise MD Primary Care Provide r Allergies Active Allergy Reactions Criticality Noted Date Comments Meperidine 03/20/2024 hives, throat closes Vancomycin Hives High 11/08/2011 hives, throat closes Medications medroxyPROGESTER one (Depo-Provera) 150 MG/ML injectionIndicat ions:Initiation of Depo Provera Inject 1 mL (150 mg) into the muscle every 3 (three) months. 1 mL 3 07/14/2024 Active Active Problems Problem Noted Date Diagnosed Date [...] Encounters Date Type Department Care Team Description 10/14/2024 Orders Only GENERIC EXTERNAL DATA DEPARTMENT Provider, Generic External Data from Last 3 Months Social History Tobacco Use Types Packs/Day Years Used Date Smoking Tobacco: Never Smokeless Tobacco: Never Tobacco Cessation:Counseling Given: Not Answered Housing Stability Answer Date Recorded What is your housing situation today? I have taitana moses 07/14/[address] you [...] 72 07/14/2024 11:38 AM EDT Temperature 36.3 C (97.4 F) 07/14/2024 11:38 AM EDT Respiratory Rate 18 07/14/2024 11:38 AM EDT Oxygen Saturation 100% 07/14/2024 11:38 AM EDT Inhaled Oxygen Concentration - - Weight 72.8 kg (160 lb 9.6 oz) 07/14/2024 11:38 AM EDT Height 167.6 cm (5' 6 ) 07/14/2024 11:38 AM EDT Body Mass Index 25.92 07/14/2024 11:38 AM EDT Plan of Treatment Health Maintenance Due Date Last Done Comments Depression Screening 1980 HIV Screening 1981 Disability Screening 1981 Alcohol/Substance Use Screening 1993 Family Planning (PISQ) 1996 Hepatitis C Screening 11/21/1999 HPV Vaccines (2 - 3-dose series) 11/12/2006 10/15/2006 Mammogram 2021 COVID-19 Vaccine ( season) 2023 10/12/2021, 05/12/2021, 04/20/2021 Influenza Vaccine (#1) 2024 , 02/11/2020, 02/04/2019, Additional history exists SDOH Screening 07/14/2025 07/14/2024 Tobacco Screening 07/14/2025 07/14/2024 Cervical Cancer Screening 01/14/2026 HPV/Cotest 01/14/2026 01/14/2023, 08/31, 09/16/2018 Pap Smear 01/14/2026 01/14/2023, 09/19/2021 DTaP/Tdap/Td [...] Years) and At-Risk Patients (6 to 49) Years Aged Out No longer eligible based on patient's age to complete this topic RSV under 20 months Aged Out No longe r eligible based on patient's age to complete this topic Rotavirus Vaccines Aged Out No longer eligible based on patient's age to complete this topic Procedures Procedure Name Priority Date/Time Associated Diagnosis Comments MR KNEE WO CONTRAST RIGHT Routine 10/19/2024 4:53 PM EDT GRAM STAIN RESULT (NON ORDERABLE) Routine 10/14/2024 1:21 AM EDT HM PAP/HPV Routine 01/14/2023 from Last 3 Months or Most Recently Relevant to Health Maintenance Results * MR Knee w/o Contrast Right (10/19/2024 4:53 PM EDT) Anatomical Region Laterality Modality Magnetic Resonan ce 10/19/2024 4:53 PM EDT Narrative 10/19/2024 4:54 PM EDT [place] [address] Magnetic Resonance Report Signed Patient: Deirdre Dolan MR#: [id number] : 1980 Acct:[id number] Age/Sex: 43 / F ADM Date: 10/17/24 Loc: HO.MRI Attending Dr: Silvano Bobby MD Ordering Physician: Silvano Bobby MD Date of Service: 10/17/24 Procedure(s): MR knee RT wo con Accession Number(s): [id number] cc: Gisel Wise MD; Silvano Bobby MD CLINICAL HISTORY: S83.241A - Other tear of medial meniscus, current injury, right knee, in... MR right knee without gadolinium Comparison: CR/SR - XR KNEE STANDING BI - 07/14/24 13:12 EDT Findings: No fractures. No pathologic bone lesions. Lateral patellar subluxation. Lateral ventral trochlear prominence. Mild subchondral edema within the patellar apex and lateral patellar facet as well as the lateral femoral trochlea. Moderate tricompartmental periarticular osteophyte formation. Severe articular cartilage loss overlying the lateral patellar facet and lateral femoral trochlea. Small knee joint effusion. Mild edema within the superolateral aspect of the infrapatellar fat pad. Trace Jorge's cyst. Cruciate and collateral ligaments are intact. Patellar retinacula and iliotibial band are intact. No tears of the quadriceps, patellar, popliteus, or flexor tendons. There is moderate T2 signal elevation within the quadriceps tendon at the patellar insertion site. There is multifocal low-grade partial-thickness tearing of the distal quadriceps tendon. There is linear horizontal high T2 signal intensity traverses the middle and peripheral thirds of the posterior horn medial meniscus, demonstrating inferior articular surface extension, indicating horizontal tearing. Linear horizontal high T2 signal intensity traverses the inner, middle, and peripheral thirds of the lateral meniscal body, demonstrating free edge extension, indicating horizontal tearing. IMPRESSION: 1. Medial and lateral meniscal tearing. 2. Tricompartmental osteoarthritis with associated articular cartilage loss. 3. Findings consistent with lateral patellofemoral friction syndrome in the appropriate clinical setting. 4. Quadriceps tendinopathy with superimposed low-grade tears. 5. Knee joint effusion. This document has been electronically signed by: Georgia Salas MD on 10/19/2024 16:53:44 Dictated By: Georgia Salas MD Signed By: <Electronically signed by Georgia Salas MD in OV> 10/19/24 1654 DD/ 165 TD/TT: 10/19/241652 [employer]: Procedure Note Donotuseinterpreter, Image - 10/19/[address] [address] Magnetic Resonance Report Signed Patient: Deirdre Dolan WMR#: [id number] : 1980Acct:[id number] Age/Sex: 43 / FADM Date: 10/17/24 Loc: HO.MRI Attending Dr: Silvano Bobby MD Ordering Physician: Silvano Bobby MD Date of Service: 10/17/24 Procedure(s): MR knee RT wo con Accession Number(s): [id number] cc: Gisel Wise MD; Silvano Bobby MD CLINICAL HISTORY: S83.241A - Other tear of medial meniscus, currentinjury, right knee, in... MR right knee without gadolinium Comparison: CR/SR - XR KNEE STANDING BI - 07/14/24 13:12 EDT Findings: No fractures. No pathologic bone lesions. Lateral patellar subluxation. Lateral ventral trochlear prominence. Mild subchondral edema within the patellar apex and lateral patellar facet as well as the lateral femoral trochlea. Moderate tricompartmental periarticular osteophyte formation. Severe articular cartilage loss overlying the lateral patellar facet and lateral femoral trochlea. Small knee joint effusion. Mild edema within the superolateral aspect of the infrapatellar fat pad. Trace Jorge's cyst. Cruciate and collateral ligaments are intact. Patellar retinacula and iliotibial band are intact. No tears of the quadriceps, patellar, popliteus, or flexor tendons. There is moderate T2 signal elevation within the quadriceps tendon at the patellar insertion site. There is multifocal low-grade partial-thickness tearing of the distal quadriceps tendon. There is linear horizontal high T2 signal intensity traverses the middle and peripheral thirds of the posterior horn medial meniscus, demonstrating inferior articular surface extension, indicating horizontal tearing. Linear horizontal high T2 signal intensity traverses the inner, middle, and peripheral thirds of the lateral meniscal body, demonstrating free edge extension, indicating horizontal tearing. IMPRESSION: 1. Medial and lateral meniscal tearing. 2. Tricompartmental osteoarthritis with associated articular cartilage loss. 3. Findings consistent with lateral patellofemoral friction syndrome in the appropriate clinical setting. 4. Quadriceps tendinopathy with superimposed low-grade tears. 5. Knee joint effusion. This document has been electronically signed by: Georgia Salas MD on 10/19/2024 16:53:44 Dictated By: Georgia Salas MD Signed By: <Electronically signed by Georgia Salas MD in OV> 10/19/24 1654 DD/ 52 TD/TT: 10/19/241652 [employer]: [facility] External Provider IM MRI PROCEDURES Final Result * Gram Stain Result (10/14/2024 1:21 AM EDT) 10/14/2024 1:21 AM EDT 10/14/2024 1:23 AM EDT Comment:AashishQuynh Kristen [facility] - 10/17/2024 11:55 AM EDT Gram stain results: 3+ polys 2+ epithelial cells 2+ Gram-negative rods 1+ Gram-positive cocci Routine Culture Report - external Routine Culture 2+ Mixed ladarius Specimen Source: CintiamandeepJessica us Generic External Data Provider HISTORICAL/NON OR DERABLE LABS Final Result [facility] [address] [place] [address] [phone] * PAP/HPV (01/14/2023) Pap Smear 1. NILM 1. NILM HPV Undetected Undetected, Indeterminate , Quantitative, Not Detected Historical Provider HEALTH MAINTENANCE Final Result from Last 3 Months or Most Recently Relevant to Health Maintenance Insurance [place] [address] C3 Care Teams Computational Chemist Relationship Specialty Start Date End Date Gisel Wise MD [address] [place] [id number] PCP - General Family Medicine 07/08/18
== END 2024-10-28 08:37 | disposition home or self-care (01) ==
LOC: HO.HOS 08:16
PROVIDERS: PCP Internal Medicine; Visit Provider Orthopaedic Surgery
DX: M17.0 Bilateral primary osteoarthritis of knee (principal)
CPT/HCPCS: 99213

== ENCOUNTER → 2024-10-28 08:15 | Outpatient (BNVA) | payer MEDICAID, SELFPAY | PROVIDERS: PCP Internal Medicine; Visit Provider Orthopaedic Surgery | DX: M25.561 Pain in right knee (principal); M25.562 Pain in left knee; M17.11 Unilateral primary osteoarthritis, right knee; M17.12 Unilateral primary osteoarthritis, left knee | CPT/HCPCS: 99212 ==

== ENCOUNTER 2024-11-02 11:42 | Outpatient (REF) | payer MEDICAID, SELFPAY ==
--- OUTSIDE RECORDS SUMMARY | 2024-11-02 12:28 | XMS_ITS | Clinical Summary ---
Author Organization [facility] Address [address] [place] [address] Care Team Providers Care Diet Aid Name Role Phone Unavailable Primary Care Provider Unavailabl e Surgical History Surgery Date Site/Laterality Comments KIDNEY STONE SURGERY 06/05/2017 Right PROCEDURE: CO NEPHROLITHOTOMY REMOVAL CALCULUS OTHER SURGICAL HISTORY PROCEDURE: [...] RESULTING AGENCY - 10/26/2019 12:41 PM EDT [id number] THINPREP PAP, IMAGED: NEGATIVE FOR SQUAMOUS INTRAEPITHELIAL [...]
== END 2024-11-02 11:43 | disposition home or self-care (01) ==
LOC: HO.MAMMO 11:42
PROVIDERS: PCP Internal Medicine; Visit Provider Internal Medicine
DX: Z12.31 Encounter for screening mammogram for malignant neoplasm of breast (principal)
CPT/HCPCS: 77063; 77067

== ENCOUNTER → 2024-11-02 11:45 | Outpatient (BNV) | payer MEDICAID, SELFPAY | PROVIDERS: PCP Internal Medicine; Visit Provider Internal Medicine | DX: Z12.31 Encounter for screening mammogram for malignant neoplasm of breast (principal) | CPT/HCPCS: 77063; 77067 ==

== ENCOUNTER 2024-12-23 09:37 | Outpatient (AMB) | payer MEDICAID, SELFPAY ==
--- NOTE | 2024-12-23 09:38 | MHC.OFFVIS ---
Vital Signs 12/23/24 09:40 Height 5 ft 6 in Weight 153 lb BMI 24.7 Intake Visit Reasons: Inj- Red knee Euflexxa #1 Intake Note: Deirdre is a 44 year old female who presents with complaints of bilateral knee pains. She describes her pains as sharp in nature. She has failed the last 3 months of conservative treatment. She wishes to hold off on surgery if at all possible. Allergies meperidine (From DEMEROL) Allergy (Intermediate, Verified 12/23/24 09:41) RASH vancomycin (VANCOMYCIN) Allergy (Intermediate, Verified 12/23/24 09:41) REDNESS, ITCHING, THROAT SWELLS, hives, swelling Medication List - Last Reconciled 12/23/24 by Silvano Bobby MD acetaminophen 1,000 mg (2 x 500 mg) PO .q8 PRN cephalexin 500 mg PO BID dextromethorphan-bupropion 45-105 mg ER (Auvelity) PO fluconazole 150 mg PO Q3D 2 doses ibuprofen 600 mg PO Q8H PRN quetiapine 25 mg PO BEDTIME PRN PFSH Social History (Updated 12/23/24 @ 09:42 by Lynda Edge) Alcohol intake: current Alcohol intake frequency: holidays/special occasions only Use of substances other than those prescribed or required for medical reasons: Yes Substance Use Type: Marijuana Current occupational status: student 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 Physical Exam Vital Signs: BMI result Body Mass Index 24.7 Const Other: Well-nourished well-developed very friendly female awake alert and oriented x3 in no acute distress Extrem Other: Bilateral knee examination shows minimal effusions, palpable crepitus with range of motion, pain with range of motion, no instability Office Procedures AMB Joint Injection/Aspiration Joint Injection/Aspiration Primary Site: left knee Prep: site was prepped using aseptic technique Injected: 20 mg of (Euflexxa viscosupplementation) and 1% plain lidocaine Procedure: The patient tolerated the procedure well Coding 38271 - Large joint Procedure code (CPT) selection complete AMB Joint Injection/Aspiration Joint Injection/Aspiration Primary Site: right knee Prep: site was prepped using aseptic technique Injected: 20 mg of (Euflexxa viscosupplementation) and 1% plain lidocaine Procedure: The patient tolerated the procedure well Coding 22197 - Large joint Procedure code (CPT) selection complete Results Reviewed Results Reviewed: X-rays of the patient's bilateral knees taken previously show joint space narrowing, subchondral sclerosis, no acute bony abnormalities Assessment & Plan Assessment & Plan (1) Osteoarthritis of left knee: Code(s): M17.12 - Unilateral primary osteoarthritis, left knee Category: Medical (2) Osteoarthritis of right knee: Code(s): M17.11 - Unilateral primary osteoarthritis, right knee Category: Medical Plan Ms. Dolan presents with bilateral knee pains due to osteoarthritis. The risks and benefits of bilateral knee Euflexxa viscosupplementation injections were discussed at length with the patient. The patient wished to proceed. She tolerated the 1st set of injections well. She will continue with her home exercise program. She will follow up next week as scheduled. Feel free to call me at any time should questions regarding her orthopedic management arise. I spent 22 minutes in reviewing the patient's records and imaging studies, seeing the patient and documenting in the medical record. Orders: Orders AMB Joint Injection/Aspiration Today M17.12 - Unilateral primary osteoarthritis, left knee AMB Joint Injection/Aspiration Today M17.11 - Unilateral primary osteoarthritis, right knee Coding Level of Care Code Est Pt Level 3 (77180) Complex EM visit Add On G2211 Diagnoses Osteoarthritis of left knee M17.12 Osteoarthritis of right knee M17.11 CPT Codes Coding - 38709 Large joint: 61801 - Large joint ([id number]) Coding - 03677 Large joint: 83147 - Large joint ([id number])
[2024-12-23 09:40] VITALS: BMI 24.7
--- OUTSIDE RECORDS SUMMARY | 2024-12-23 11:29 | XMS_ITS | Clinical Summary ---
Author Organization [facility] Address [address] [place] [address] Care Team Providers Care Promotions Producer Name Role Phone Unavailable Primary Care Provider Unavailabl e Surgical History Surgery Date Site/Laterality Comments KIDNEY STONE SURGERY 06/05/2017 Right PROCEDURE: IN NEPHROLITHOTOMY REMOVAL CALCULUS OTHER SURGICAL HISTORY PROCEDURE: [...] Cancer Screening: P ap Smear 10/14/2022 10/15/2019 Depression Screening 04/01/2024 COVID-19 Vaccine (1 - 2023-2 5 season) 2024 Influenza Vaccine (#1) 2024 02/11/2020 DTaP,Tdap,and Td [...] RESULTING AGENCY - 10/26/2019 12:41 PM EDT [id number] THINPREP PAP, IMAGED: NEGATIVE FOR SQUAMOUS INTRAEPITHELIAL [...]
--- OUTSIDE RECORDS SUMMARY | 2024-12-23 11:29 | XMS_ITS | Clinical Summary ---
Author Organization [employer] Address [address] [facility] 7[address] [place] [address] Care Team Providers Care Outpatient Scheduler Name Role Phone Gisel Wise MD Primary [...] Vaccines (2 - 3-dose series) 11/12/2006 10/15/2006 COVID-19 Vaccine ( season) 2024 10/12/2021, 05/12/2021, 04/20/2021 Influenza Vaccine (#1) 2024 , 02/11/2020, 02/04/2019, Additional history exists SDOH Screening 07/14/2025 07/14/2024 Tobacco Screening 07/14/2025 07/14/2024 Cervical Cancer Screening 01/14/2026 HPV/Cotest 01/14/2026 01/14/2023, 08/31, 09/16/2018 Pap Smear 01/14/2026 01/14/2023, 09/19/2021 Mammogram 11/02/2026 11/02/2024 DTaP/Tdap/Td Vaccines (9 - Td or Tdap) [...] Procedure Name Priority Date/Time Associated Diagnosis Comments BI MAMMOGRAM SCREENING TOMOSYNTHESIS BILATERAL Routine 11/02/2024 11:50 AM EDT Breast cancer screening by mammogram KNEE WO CONTRAST RIGHT Routine 10/19/2024 4:53 PM EDT GRAM STAIN RESULT (NON ORDERABLE) Routine 10/14/2024 1:21 AM EDT HM PAP/HPV Routine 01/14/2023 from Last 3 Months or Most Recently Relevant to Health Maintenance Results * BI Mammogram Screening Tomosynthesis Bilateral (11/02/2024 11:50 AM EDT) Anatomical Region Laterality Modality Breast Bilateral Mammography 11/02/2024 11:5 0 AM EDT Narrative 11/10/2024 1:44 PM EDT [facility] [address] [place] [address] Mammography Report Signed Patient: Deirdre Dolan MR#: [id number] [id number] : 1980 Acct:[id number] Age/Sex: 43 / F ADM Date: 11/02/24 Loc: HO.MAMMO Attending Dr: Gisel Oliveira MD Ordering Physician: Gisel Wise MD Results: 0Incomplete: Needs Additional Imaging Evaluation Date of Service: 11/02/24 Follow Up: Additional Imagi ng Procedure(s): MM tomosynthesis screening BI Accession Number(s): [id number] cc: Gisel Wise MD EXAMINATION: MM SCREENING DIGITAL BREAST TOMOSYNTHESIS, BILATERAL CLINICAL INFORMATION: Screening. Asymptomatic. COMPARISON: Mammography: Baseline. TECHNIQUE: Digital breast mammography with tomosynthesis is performed in both the craniocaudal and mediolateral oblique views along with computer-aided detection (CAD). FINDINGS: The breasts are heterogeneously dense, which may obscure small masses (ACR BI-RADS breast composition Category c). Right: There are no significant masses, abnormal calcifications, or other abnormalities. Left: Focal asymmetry in the central outer breast middle to posterior depth. No suspicious calcifications or other abnormal findings. MM/MM tomosynthesis screening BI IMPRESSION: Additional imaging is recommended ASSESSMENT: BI-RADS BI-RADS 0 - Incomplete: Needs additional Imaging. RECOMMENDATION: 1. Additional views of the left breast 2. Targeted ultrasound if warranted after review of the additional views. 3. Radiology department staff will contact the patient for additional imaging. Additional Imaging required This examination should not preclude the clinical evaluation of a suspicious palpable abnormality. This patient's information was entered into a reminder system with a target due date for their next mammogram. Electronically signed by: Diamond Gordillo DO 11/10/2024 01:41 PM EDT Dictated By: Diamond Gordillo DO Signed By: <Electronically signed by Diamond Gordillo DO in OV> 11/10/24 1341 DD/ 1150 TD/TT: 11/02/24 1205 Drawstring Knotter: Procedure Note Donotuseinterpreter, Image - 11/10/2024 [facility] [address] [place] [address] Mammography Report Signed Patient: Deirdre Dolan WMR#: [id number] : 1980Acct:[id number] Age/Sex: 43 / FADM Date: 11/02/24 Loc: MAMMO Attending Dr: Gisel Oliveira MD Ordering Physician: Gisel Wise MD Results: 0Incomplete: Needs Additional Imaging Evaluation Date of Service: 11/02/24Follow Up: Additional Imagi ng Procedure(s): MM tomosynthesis screening BI Accession Number(s): [id number] cc: Gisel Wise MD EXAMINATION: MM SCREENING DIGITAL BREAST TOMOSYNTHESIS, BILATERAL CLINICAL INFORMATION: Screening. Asymptomatic. COMPARISON: Mammography: Baseline. TECHNIQUE: Digital breast mammography with tomosynthesis is performed in both the craniocaudal and mediolateral oblique views along with computer-aided detection (CAD). FINDINGS: The breasts are heterogeneously dense, which may obscure small masses (ACR BI-RADS breast composition Category c). Right: There are no significant masses, abnormal calcifications, or other abnormalities. Left: Focal asymmetry in the central outer breast middle to posterior depth. No suspicious calcifications or other abnormal findings. MM/MM tomosynthesis screening BI IMPRESSION: Additional imaging is recommended ASSESSMENT: BI-RADS BI-RADS 0 - Incomplete: Needs additional Imaging. RECOMMENDATION: 1. Additional views of the left breast 2. Targeted ultrasound if warranted after review of the additional views. 3. Radiology department staff will contact the patient for additional imaging. Additional Imaging required This examination should not preclude the clinical evaluation of a suspicious palpable abnormality. This patient's information was entered into a reminder system with a target due date for their next mammogram. Electronically signed by: Diamond Gordillo DO 11/10/2024 01:41 PM EDT Dictated By: Diamond Gordillo DO Signed By: <Electronically signed by Diamond Gordillo DO in OV> 11/10/24 1341 DD/ 1150 TD/TT: 11/02/24 1205 Drawstring Knotter: us Gisel Oliveira MD IMG BI PROCEDURES Joel maria elena Result - Final * MR Knee w/o Contrast Right (10/19/2024 4:53 PM EDT) Anatomical Region Laterality Modality Magnetic Resonan ce 10/19/2024 4:53 PM EDT Narrative 10/19/2024 4:54 PM EDT [address] [address] Magnetic Resonance Report Signed Patient: Deirdre Dolan MR#: [id number] 078 : 1980 Acct:[id number] Age/Sex: 43 / F ADM Date: 10/17/24 Loc: HO.MRI Attending Dr: Silvano Bobby MD Ordering Physician: Silvano Bobby MD Date of Service: 10/17/24 Procedure(s): MR knee RT wo con Accession Number(s): [id number] cc: Gisel Wise MD; Silvano Bobby MD [...] OV> 10/19/24 1654 DD/ 52 TD/TT: 10/19/241652 Drawstring Knotter: Procedure Note Michaela, Image - 10/19/2024 [place] [address] Magnetic Resonance Report Signed Patient: Deirdre Dolan WMR#: [id number] 078 : 1980Acct:[id number] Age/Sex: 43 / FADM Date: 10/17/24 Loc: HO.MRI Attending Dr: Silvano Bobby MD Ordering Physician: Silvano Bobby MD Date of Service: 10/17/24 Procedure(s): MR knee RT wo con Accession Number(s): [id number] cc: Gisel Wise MD; Silvano Bobby MD [...] Salas MD in OV> 10/19/24 1654 DD/ 1653 TD/TT: 10/19/24 1653 Drawstring Knotter: [facility] External Provider IMG MRI PROCEDURES Final Result * Gram Stain Result (10/14/2024 1:21 AM EDT) 10/14/2024 1:21 AM EDT 10/14/2024 1:23 AM EDT Comment:Quynh Zendejas [facility] - 10/17/2024 11:55 AM EDT Gram stain results: 3+ polys 2+ epithelial cells 2+ Gram-negative rods 1+ Gram-positive cocci Routine Culture Report - external Routine Culture 2+ Mixed ladarius Specimen Source: Jessica Zendejas Generic External Data Provider HISTORICAL/NON OR DERABLE LABS Final Result Performing Organization Address [facility]/State/ZIP Co de Phone Number [facility] [address] [place] [phone] * PAP/HPV (01/14/2023) Pap Smear 1. NILM 1. NILM HPV Undetected Undetected, Indeterminate , Quantitative, Not Detected Historical Provider HEALTH MAINTENANCE Final Result from Last 3 Months or Most Recently Relevant to Health Maintenance Insurance [address] [place], [place] [address]Focus IP C3 Care Teams Outpatient Scheduler Relationship Specialty Start Date End Date Gisel Wise MD [address] [place] [phone] PCP - General Family Medicine 07/08/18
== END 2024-12-23 10:04 | disposition home or self-care (01) ==
LOC: HO.HOS 09:37
PROVIDERS: PCP Internal Medicine; Visit Provider Orthopaedic Surgery
DX: M17.0 Bilateral primary osteoarthritis of knee (principal)
CPT/HCPCS: 20610; 99213

== ENCOUNTER → 2024-12-23 09:37 | Outpatient (BNVA) | payer MEDICAID, SELFPAY | PROVIDERS: PCP Internal Medicine; Visit Provider Orthopaedic Surgery | DX: M17.0 Bilateral primary osteoarthritis of knee (principal) | CPT/HCPCS: 20610; 99212; J2003; J7323 ==

== ENCOUNTER 2024-12-30 09:40 | Outpatient (AMB) | payer MEDICAID, SELFPAY ==
--- NOTE | 2024-12-30 09:43 | MHC.OFFVIS ---
Intake Visit Reasons: Inj- Red knee Euflexxa #2 Intake Note: Deirdre is a 44 year old female who presents for follow-up of her bilateral knee pains. She states that she got mild relief from the 1st set of Euflexxa injections. She continues with her home exercise program. Allergies meperidine (From DEMEROL) Allergy (Intermediate, Verified 12/30/24 09:48) RASH vancomycin (VANCOMYCIN) Allergy (Intermediate, Verified 12/30/24 09:48) REDNESS, ITCHING, THROAT SWELLS, hives, swelling Medication List - Last Reconciled 12/30/24 by Silvano Bobby MD acetaminophen 1,000 mg (2 x 500 mg) PO .q8 PRN cephalexin 500 mg PO BID dextromethorphan-bupropion 45-105 mg ER (Auvelity) PO fluconazole 150 mg PO Q3D 2 doses ibuprofen 600 mg PO Q8H PRN quetiapine 25 mg PO BEDTIME PRN PFSH Social History (Updated 12/23/24 @ 09:42 by Lynda Edge) Alcohol intake: current Alcohol intake frequency: holidays/special occasions only Substance Use Type: Marijuana Current occupational status: student 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 Physical Exam Extrem Other: Bilateral knee examination shows minimal effusions, palpable crepitus with range of motion, pain with range of motion, no instability Office Procedures AMB Joint Injection/Aspiration Joint Injection/Aspiration Primary Site: left knee Prep: site was prepped using aseptic technique Injected: 20 mg of (Euflexxa viscosupplementation) and 1% plain lidocaine Procedure: The patient tolerated the procedure well Coding 08519 - Large joint Procedure code (CPT) selection complete AMB Joint Injection/Aspiration Joint Injection/Aspiration Primary Site: right knee Prep: site was prepped using aseptic technique Injected: 20 mg of (Euflexxa viscosupplementation) and 1% plain lidocaine Procedure: The patient tolerated the procedure well Coding 02515 - Large joint Procedure code (CPT) selection complete Results Reviewed Results Reviewed: X-rays of the patient's bilateral knees taken previously show joint space narrowing, subchondral sclerosis, no acute bony abnormalities Assessment & Plan Assessment & Plan (1) Osteoarthritis of left knee: Code(s): M17.12 - Unilateral primary osteoarthritis, left knee Category: Medical (2) Osteoarthritis of right knee: Code(s): M17.11 - Unilateral primary osteoarthritis, right knee Category: Medical Plan Ms. Dolan presents with bilateral knee pains due to osteoarthritis. The risks and benefits of a 2nd set of Euflexxa injections were discussed at length with the patient. She wished to proceed. She tolerated the bilateral knee injections well. She will continue with her home exercise program. She will follow up next week as scheduled. Feel free to call me at any time should questions regarding her orthopedic management arise. Orders: Orders AMB Joint Injection/Aspiration Today M17.12 - Unilateral primary osteoarthritis, left knee AMB Joint Injection/Aspiration Today M17.11 - Unilateral primary osteoarthritis, right knee Coding Level of Care Code Procedure Only Diagnoses Osteoarthritis of left knee M17.12 Osteoarthritis of right knee M17.11 CPT Codes Coding - 52540 Large joint: 04123 - Large joint ([id number]) Coding - 27178 Large joint: 96589 - Large joint ([id number])
--- OUTSIDE RECORDS SUMMARY | 2024-12-30 10:33 | XMS_ITS | Clinical Summary ---
Author Organization [employer] Address [address] [facility] 7[address] [place] [address] Care Team Providers Care Junior Linux Systems Administrator Name Role Phone Gisel Wise MD Primary [...] AM EDT Narrative 11/10/2024 1:44 PM EDT [facility] [address] [place] [address] Mammography Report Signed Patient: Deirdre Dolan MR#: [id number] [id number] : 1980 Acct:[id number] Age/Sex: 43 / F ADM Date: 11/02/24 Loc: HO.MAMMO Attending Dr: Gisel Oliveira MD Ordering Physician: Gisel Wise MD Results: 0Incomplete: Needs Additional Imaging Evaluation Date of Service: 11/02/24 Follow Up: Additional Imagi ng Procedure(s): MM tomosynthesis screening BI Accession Number(s): [id number] cc: Gisel Wise MD EXAMINATION: MM SCREENING [...] 11/10/24 1341 DD/ 1150 TD/TT: 11/02/24 1205 Manager Plumbing: Procedure Note Donotuseinterpreter, Image - 11/10/2024 [facility] [address] [place] [address] Mammography Report Signed Patient: Deirdre Dolan WMR#: [id number] : 1980Acct:[id number] Age/Sex: 43 / FADM Date: 11/02/24 Loc: MAMMO Attending Dr: Gisel Oliveira MD Ordering Physician: Gisel Wise MD Results: 0Incomplete: Needs Additional Imaging Evaluation Date of Service: 11/02/24Follow Up: Additional Imagi ng Procedure(s): MM tomosynthesis screening BI Accession Number(s): [id number] cc: Gisel Wise MD EXAMINATION: MM SCREENING [...] 11/10/24 1341 DD/ 1150 TD/TT: 11/02/24 1205 Manager Plumbing: us Gisel Oliveira MD IMG BI PROCEDURES Joel maria elena Result - Final * MR Knee w/o Contrast Right (10/19/2024 4:53 PM EDT) Anatomical Region Laterality Modality Magnetic Resonan ce 10/19/2024 4:53 PM EDT Narrative 10/19/2024 4:54 PM EDT [address] [address] Magnetic Resonance Report Signed Patient: Deirdre Dolan MR#: [id number] : 1980 Acct:[id number] Age/Sex: 43 / F ADM Date: 10/17/24 Loc: HO.MRI Attending Dr: Silvano Bobby MD Ordering Physician: Silvano Bobby MD Date of Service: 10/17/24 Procedure(s): MR knee RT wo con Accession Number(s): [id number] cc: Gisel Wise MD; Silvano Bobby MD [...] OV> 10/19/24 1654 DD/ 52 TD/TT: 10/19/241652 Manager Plumbing: Procedure Note Michaela, Image - 10/19/2024 [place] [address] Magnetic Resonance Report Signed Patient: Deirdre Dolan WMR#: [id number] : 1980Acct:[id number] Age/Sex: 43 / FADM Date: 10/17/24 Loc: HO.MRI Attending Dr: Silvano Bobby MD Ordering Physician: Silvano Bobby MD Date of Service: 10/17/24 Procedure(s): MR knee RT wo con Accession Number(s): [id number] cc: Gisel Wise MD; Silvano Bobby MD [...] 10/19/24 1654 DD/ 1653 TD/TT: 10/19/24 1653 Manager Plumbing: [facility] External Provider IMG MRI PROCEDURES Final Result * Gram Stain Result (10/14/2024 1:21 AM EDT) 10/14/2024 1:21 AM EDT 10/14/2024 1:23 AM EDT Comment:Quynh Zendejas [facility] - 10/17/2024 11:55 AM EDT Gram stain results: 3+ polys 2+ epithelial cells 2+ Gram-negative rods 1+ Gram-positive cocci Routine Culture Report - external Routine Culture 2+ Mixed ladarius Specimen Source: Jessica Zendejas Generic External Data Provider HISTORICAL/NON OR DERABLE LABS Final Result Performing Organization Address [facility]/State/ZIP Co de Phone Number [facility] [address] [place] [phone] * PAP/HPV (01/14/2023) Pap Smear 1. NILM 1. NILM HPV Undetected Undetected, Indeterminate , Quantitative, Not Detected Historical Provider HEALTH MAINTENANCE Final Result from Last 3 Months or Most Recently Relevant to Health Maintenance Insurance [address] [place], [place] [address]Seriously C3 Care Teams Junior Linux Systems Administrator Relationship Specialty Start Date End Date Gisel Wise MD [address] [place] [id number] PCP - General Family Medicine 07/08/18
--- OUTSIDE RECORDS SUMMARY | 2024-12-30 10:33 | XMS_ITS | Clinical Summary ---
Author Organization [facility] Address [address] [place] [address] Care Team Providers Care Technology Support Analyst Name Role Phone Unavailable Primary Care Provider Unavailabl e Surgical History Surgery Date Site/Laterality Comments KIDNEY STONE SURGERY 06/05/2017 Right PROCEDURE: [place] NEPHROLITHOTOMY REMOVAL CALCULUS OTHER SURGICAL HISTORY PROCEDURE: [...] of 3 - 19+ 3-dose series) 2000 HPV Vaccines (1 - 3-dose SCD M series) 2008 Cervical Cancer Screening: P ap Smear 10/14/2022 10/15/2019 Depression Screening 04/01/2024 COVID-19 Vaccine (1 - 2023-2 5 season) 2024 Influenza Vaccine (#1) 2024 02/11/2020 DTaP,Tdap,and Td Vaccines (2 - Td or Tdap) 02/10/2030 02/11/2020 RSV Immunization Adult Patie nts (1 - 1-dose 75+ series) 2056 HIB Vaccines Aged Out No longer eligi [...] RESULTING AGENCY - 10/26/2019 12:41 PM EDT [id number] THINPREP PAP, IMAGED: NEGATIVE FOR SQUAMOUS INTRAEPITHELIAL [...] us Amanda Gil MD LAB CYTOLOGY ORDERABLES Leonidas alvarado Result HISTORICAL TESTING LAB RESULTING AGENCY from Last 3 Months or Most Recently Relevant to Health Maintenance
== END 2024-12-30 10:09 | disposition home or self-care (01) ==
LOC: HO.HOS 09:41
PROVIDERS: PCP Internal Medicine; Visit Provider Orthopaedic Surgery
DX: M17.0 Bilateral primary osteoarthritis of knee (principal)
CPT/HCPCS: 20610

== ENCOUNTER → 2024-12-30 09:40 | Outpatient (BNVA) | payer MEDICAID, SELFPAY | PROVIDERS: PCP Internal Medicine; Visit Provider Orthopaedic Surgery | DX: M17.0 Bilateral primary osteoarthritis of knee (principal) | CPT/HCPCS: 20610; J2003; J7323 ==

== ENCOUNTER 2025-01-06 09:44 | Outpatient (AMB) | payer MEDICAID, SELFPAY ==
--- NOTE | 2025-01-06 09:47 | A.OFFVIS_ITS ---
Intake Visit Reasons: Inj-Bilateral knee Euflexxa #3 Intake Note: Deirdre is a 44 year old female who presents for follow-up of her bilateral knee pains. The patient states that she has gotten mild relief from the 1st 2 sets of Euflexxa injections. She continues with her home exercise program. Allergies meperidine (From DEMEROL) Allergy (Intermediate, Verified 01/06/25 09:50) RASH vancomycin (VANCOMYCIN) Allergy (Intermediate, Verified 01/06/25 09:50) REDNESS, ITCHING, THROAT SWELLS, hives, swelling Medication List - Last Reconciled 01/06/25 by Silvano Bobby MD acetaminophen 1,000 mg (2 x 500 mg) PO .q8 PRN cephalexin 500 mg PO BID dextromethorphan-bupropion 45-105 mg ER (Auvelity) PO fluconazole 150 mg PO Q3D 2 doses ibuprofen 600 mg PO Q8H PRN quetiapine 25 mg PO BEDTIME PRN PFSH Social History (Updated 12/23/24 @ 09:42 by Lynda Edge) Alcohol intake: current Alcohol intake frequency: holidays/special occasions only Substance Use Type: Marijuana Current occupational status: student 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 Physical Exam Extrem Other: Bilateral knee examination shows minimal effusions, palpable crepitus with range of motion, pain with range of motion, no instability Office Procedures AMB Joint Injection/Aspiration Joint Injection/Aspiration Primary Site: left knee Prep: site was prepped using aseptic technique Injected: 20 mg of (Euflexxa viscosupplementation) and 1% plain lidocaine Procedure: The patient tolerated the procedure well Coding 96994 - Large joint Procedure code (CPT) selection complete AMB Joint Injection/Aspiration Joint Injection/Aspiration Primary Site: right knee Prep: site was prepped using aseptic technique Injected: 20 mg of (Euflexxa viscosupplementation) and 1% plain lidocaine Procedure: The patient tolerated the procedure well Coding 02562 - Large joint Procedure code (CPT) selection complete Assessment & Plan Assessment & Plan (1) Osteoarthritis of left knee: Code(s): M17.12 - Unilateral primary osteoarthritis, left knee Category: Medical (2) Osteoarthritis of right knee: Code(s): M17.11 - Unilateral primary osteoarthritis, right knee Category: Medical Plan Ms. Dolan presents with bilateral knee pains due to osteoarthritis. The risks and benefits of a 3rd set of Euflexxa injections were discussed at length with the patient. The patient wished to proceed. She tolerated the injections well. She will continue with her home exercise program. She will contact me prior to her follow-up appointment in 6 months should any questions or concerns arise. Feel free to call me at any time should questions regarding her orthopedic management arise. Orders: Orders AMB Joint Injection/Aspiration Today M17.12 - Unilateral primary osteoarthritis, left knee AMB Joint Injection/Aspiration Today M17.11 - Unilateral primary oste oarthritis, right knee Coding Level of Care Code Procedure Only Diagnoses Osteoarthritis of left knee M17.12 Osteoarthritis of right knee M17.11 CPT Codes Coding - 34272 Large joint: 17700 - Large joint ([id number]) Coding - 40224 Large joint: 27947 - Large joint ([id number])
== END 2025-01-06 10:08 | disposition home or self-care (01) ==
PROVIDERS: PCP Internal Medicine; Referring Provider Internal Medicine; Visit Provider Orthopaedic Surgery
DX: M17.0 Bilateral primary osteoarthritis of knee (principal)
CPT/HCPCS: 20610

== ENCOUNTER → 2025-01-06 09:44 | Outpatient (BNVA) | payer MEDICAID, SELFPAY | PROVIDERS: PCP Internal Medicine; Visit Provider Orthopaedic Surgery | DX: M17.0 Bilateral primary osteoarthritis of knee (principal) | CPT/HCPCS: 20610; J2003; J7323 ==

== ENCOUNTER 2025-02-23 17:44 | Emergency (ER) | payer MEDICAID, SELFPAY ==
[2025-02-23 17:53] VITALS: BP 134/71; PULSE 77; RESP 18; TEMP 36.4; O2SAT 100; BMI 26.0
--- NOTE | 2025-02-23 17:53 | ED_ITS ---
HPI - General Adult General Chief complaint: Extremity Injury, Lower Stated complaint: Dog bite Time Seen by Provider: 02/23/25 19:18 History of Present Illness ED Provider: Tiff Castro HPI narrative: 44-year-old female presents to the ED reporting a dog bite to the right anterior kim. Reports that she was outside when a neighbor's dog attacked her. It is not a stray dog, there was a small bite to the right anterior kim. She contacted the police, who contacted animal control. Arrives to the ED for additional testing. She is unsure if the dog is up-to-date on rabies vaccines or not, as the dog is not known to her. Unknown last Tdap. Denies any other medical complaints including chest pain, shortness of breath, abdominal pain, fever or chills. Related Data Home Medications ?Medication ?Instructions ?Recorded ?Confirmed dextromethorphan IR 45 PO 09/30/24 01/06/25 mg-bupropion ER 105 mg biphasic tablet (Auvelity) quetiapine 25 mg tablet 25 mg PO BEDTIME PRN insomni a 09/30/24 01/06/25 Previous Rx's ?Medication ?Instructions ?Recorded acetaminophen 500 mg capsule 1,000 mg (2 x 500 mg) PO .q8 PRN 10/14/24 fever or pain #30 caps cephalexin 500 mg capsule 500 mg PO BID #10 caps 10/14 fluconazole 150 mg tablet 150 mg PO Q3D 2 doses #2 tab s 10/14/24 ibuprofen 600 mg tablet 600 mg PO Q8H PRN fever or p ain 10/14/24 #30 tabs amoxicillin 875 mg-potassium 1 tab PO BID 7 days #14 t abs 02/23/25 clavulanate 125 mg tablet Allergies Allergy/AdvReac Type Severity Reaction Status Date / Time meperidine (From DEMEROL) Allergy Intermediate RASH Verified 02/23/25 17:56 vancomycin (VANCOMYCIN) Allergy Intermediate REDNESS, Verified 02/23/25 17:56 ITCHING, THROAT SWELLS, hives, swelling Review of Systems Review of Systems: ROS is otherwise negative unless mentioned in HPI. 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 Constitutional: Well-appearing, NAD. Alert. Oriented X3. Eyes: EOMI. ENT: Pharynx normal. Neck: Normal inspection. Neck supple. Respiratory: No respiratory distress. Skin: Skin warm and dry. Normal skin color. Break in the skin with U-shaped superficial laceration from dog bite to the right anterior kim. Extremities: No lower extremity edema. Neuro: Oriented X 3. No motor deficit. Vital Signs: Vital Signs - 24 hr 02/23/25 17:53 02/23/25 20:12 Temperature 97.6 F 98.1 F Pulse Rate 77 68 Respiratory Rate 18 17 Blood Pressure 134/71 128/80 Pulse Oximetry 100 100 Oxygen Delivery Method Room Air Room Air BMI result Body Mass Index 26.0 Course Course Course Narrative: This is a rapid medical exam performed by Dominique Le NP: Additional HPI, ROS, PE not included below will be deferred to primary provider. Patient is a 44y/o F presenting with complaint of dog bite to right leg. Was visiting family, and leaving the apartment building when 3 dogs ran over to her but only one bit her. This occurred in [place] around 1.5hrs ago. Patient unsure last Tdap. Vaccination status of dogs unknown. She did report to PD who told her animal control would follow up. Patient more comfortable initiating full rabies series today. Plan: Tdap, rabies series Medications Administered Discontinued Medications Generic Name Dose Route Start Last Admin Trade Name Freq PRN Reason Stop Dose Admin Amoxicillin/Clavulanate Potassium 875 mg 02/23/25 19:29 02/23/25 20:34 Amoxicillin/Potassium Clav 875 Mg Tablet PO 02/23/25 19:30 875 mg ONCE ONE Administration Diphtheria/Tetanus/Acell Pertussis 0.5 ml 02/23/25 18:00 02/23/25 19:29 Diphth,Pertus(Acell),Tet Adult 0.5 Ml Syringe IM 02/23/25 18:01 0.5 ml .ONCE ONE Administration Rabies Immune Globulin 1,464 unit 02/23/25 18:00 02/23/25 20:18 Rabies Immune Globulin/Pf 1,500 Unit/5 Ml Vial 20 unit/kg (1464 unit) 02/23/25 18:01 1,464 unit IM Administration ONCE ONE Rabies Vaccine 1 ml 02/23/25 18:00 02/23/25 20:17 Rabies Vaccine (Pcec)/Pf 1 Ml Vial IM 02/23/25 18:01 1 ml .ONCE ONE Administration Medical Decision Making Medical Decision Making MDM Narrative: On exam, there is a small dog bite to the right anterior kim. It did break the skin. There is no indication for closure, it is very small. In the ED we will administer a dose of Augmentin to cover for bacterial infections, as well as Tdap. We discussed extensively rabies vaccination, though she tells me that this dog is not a stray dog. Nursing will try and contact PD to determine rabies vaccination status of the dog. If unable to do so, patient will receive 1st dose of rabies vaccine today, and then follow up outpatient as well. 2038-- the nursing staff was able to speak with [facility] Department, the dog's being quarantined at the owners home. Unclear of oxygenation status. At this time, we administer the full rabies immune globulin, she received the remainder of the volume of what she could not tolerate into the bite site in the gluteal muscle. Otherwise she tolerated the injection/vaccinations well. Was given the 1st dose of Augmentin in the ED. I have repaired the instructions for her to return to the ED, or with the infusion clinic (and placed order for the infusion clinic) for the rabies vaccine series. She was also provided a work note. Agreeable to discharge plan. Given return precautions to the ED. Differential Diagnosis Differential Diagnoses: The differential diagnosis associated with the presentation includes Dog bite, encounter for vaccination Admission/Observation Consideration of admission/observation: Escalation of care including admission/observation considered Not indicated Independent Historian Clinical information obtained from an independent historian. History obtained from or confirmed by: Other ([place] Police) Social Determinants Patient?s care significantly limited by Social Determinants of Health including: Problems related to primary support group Discharge Plan Discharge Clinical Impression: Dog bite of kim Patient Disposition: Home, Self-Care Instructions: Animal Bite (ED), Rabies (ED) Additional Instructions: As we discussed, in the ER today we gave you a Tdap vaccine, and your 1st rabies vaccine. You will need to come back on day 3, 7, and 14 for additional vaccines (infusion center). The dates are listed below for your convenience. Additionally, we have prescribed you a course of Augmentin, given dogs carry many bacteria on their teeth to prevent an infection there. We gave you the rabies immunoglobulin in the ED as well. With any worsening complaints at any time, return to the ED for reassessment. Day 3 02/26/25 Day 7 03/02/25 Day Saturday03/09/25 Prescriptions: New amoxicillin-pot clavulanate 875-125 mg tablet 1 tab PO BID 7 Days Qty: 14 0RF No Action ibuprofen 600 mg tablet 600 mg PO Q8H PRN (Reason: fever or pain) Qty: 30 0RF acetaminophen 500 mg capsule 1,000 mg PO .q8 PRN (Reason: fever or pain) Qty: 30 0RF cephalexin 500 mg capsule 500 mg PO BID Qty: 10 0RF fluconazole 150 mg tablet 150 mg PO Q3D Qty: 2 0RF quetiapine 25 mg tablet 25 mg PO BEDTIME PRN (Reason: insomnia) Auvelity 45-105 mg tablet, IR and ER, biphasic PO Referrals: Gisel Wise MD [Primary Care Provider, Internal Medicine] Stand Alone Forms: Work/School Release Print Language: Indonesian
[2025-02-23] MEDS: Diphth,Pertus(ACell),Tet Adult 0.5 ML SYRINGE IM (19:29)
--- NOTE | 2025-02-23 19:44 | PC.NURSE ---
Instructed by provider to hold Rabies vaccine & HyperRAB until speaking with [employer].
--- OUTSIDE RECORDS SUMMARY | 2025-02-23 19:45 | XMS_ITS | Clinical Summary ---
Author Organization [facility] Address [address] [place] [address] Care Team Providers Care Warehouse Processor Name Role Phone Unavailable Primary Care Provider Unavailabl e Surgical History Surgery Date Site/Laterality Comments KIDNEY STONE SURGERY 06/05/2017 Right PROCEDURE: [place] NEPHROLITHOTOMY REMOVAL CALCULUS OTHER SURGICAL HISTORY PROCEDURE: [...] Depression Screening 04/01/2024 COVID-19 Vaccine (1 - 2024-2 6 season) 2024 Influenza Vaccine (#1) 2024 02/11/2020 [...] RESULTING AGENCY - 10/26/2019 12:41 PM EDT [id number] THINPREP PAP, IMAGED: NEGATIVE FOR SQUAMOUS INTRAEPITHELIAL [...]
--- OUTSIDE RECORDS SUMMARY | 2025-02-23 19:45 | XMS_ITS | Clinical Summary ---
Author Organization [employer] Address [address] [facility] [address] [place] [address] Care Team Providers Care Sociology Research Assistant Name Role Phone Gisel Wise MD Primary [...] fails to improve Cellulitis of face 03/20/2024 Social History Tobacco Use Types Packs/Day Years [...] t he electric, gas, oil or water [employer] threatened to shut off services in your [...] AM EDT Breast cancer screening by mammogram HM PAP/HPV Routine 01/14/2023 from Last 3 Months or Most Recently Relevant to Health Maintenance Results * BI Mammogram Screening Tomosynthesis Bilateral (11/02/2024 11:50 AM EDT) Anatomical Region Laterality Modality Breast Bilateral Mammography 11/02/2024 11:5 0 AM EDT Narrative 11/10/2024 1:44 PM EDT [address] [place] [address] Mammography Report Signed Patient: Deirdre Dolan MR#: [id number] 078 : 1980 Acct:[id number] Age/Sex: 43 / F ADM Date: 11/02/24 Loc: HO.MAMMO Attending Dr: Gisel Oliveira MD Ordering Physician: Gisel Wise MD Results: 0Incomplete: Needs Additional Imaging Evaluation Date of Service: 11/02/24 Follow Up: Additional Imagi ng Procedure(s): MM tomosynthesis screening BI Accession Number(s): [id number] cc: Gisel Wise MD EXAMINATION: MM SCREENING [...] Diamond Gordillo DO 11/10/2024 01:41 PM EDT RP Dictated By: Diamond Gordillo DO Signed By: <Electronically signed by Diamond Gordillo DO in OV> 11/10/24 1341 DD/ 1150 TD/TT: 11/02/24 1205 Systems Support Engineer: Procedure Note Donyousuf, Image - 11/10/2024 [facility] [address] [place] [address] Mammography Report Signed Patient: Deirdre Dolan WMR#: [id number] : 1980Acct:[id number] Age/Sex: 43 / FADM Date: 11/02/24 Loc: HO.MAMMO Attending Dr: Gisel Oliveira MD Ordering Physician: Gisel Wise MD Results: 0Incomplete: Needs Additional Imaging Evaluation Date of Service: 11/02/24Follow Up: Additional Imagi ng Procedure(s): MM tomosynthesis screening BI Accession Number(s): [id number] cc: Gisel Wise MD EXAMINATION: MM SCREENING [...] 11/10/24 1341 DD/ 1150 TD/TT: 11/02/24 1205 Systems Support Engineer: Gisel Oliveira MD IMG BI PROCEDURES Joel maria elena Result - Final * HM PAP/HPV (01/14/2023) Pap Smear 1. NILM 1. NILM HPV Undetected Undetected, Indeterminate , Quantitative, Not Detected Historical Provider HEALTH MAINTENANCE Final Result from Last 3 Months or Most Recently Relevant to Health Maintenance Insurance [employer] C3 Care Teams Sociology Research Assistant Relationship Specialty Start Date End Date Gisel Wise MD [address] [place] [id number] PCP - General Family Medicine 07/08/18
--- NOTE | 2025-02-23 19:55 | PC.NURSE ---
Attempted to contact [place] [employer] Department regarding dog bite. Bite occurred near the patient's home around 2:30pm today, bite to right kim. Per D departmental secretary, expecting call back from D officer. Awaiting response. Tiff Castro NP aware.
[2025-02-23 20:12] VITALS: BP 128/80; PULSE 68; RESP 17; TEMP 36.7; O2SAT 100
[2025-02-23] MEDS: Rabies Vaccine (PCEC)/PF 1 ML VIAL IM (20:17)
[2025-02-23 20:52] VITALS: BP 128/80; PULSE 68; RESP 17; TEMP 36.7; O2SAT 100
--- NOTE | 2025-02-24 10:13 | PC.NURSE ---
[facility] ([facility]) called back regarding vaccination status of the dog that bit the patient. Dog is up-to-date on all vaccinations, including rabies vaccination which expires 06/05/2025.
== END 2025-02-23 20:52 | disposition home or self-care (01) ==
PROVIDERS: Emergency Provider Student in an Organized Health Care Education/Training Program; PCP Internal Medicine
DX: S81.851A Open bite, right lower leg, initial encounter (principal); W54.0XXA Bitten by dog, initial encounter; Y93.9 Activity, unspecified; Y92.9 Unspecified place or not applicable; Y99.9 Unspecified external cause status
CPT/HCPCS: 90375; 90471; 90675; 90715; 96372; 99283; 99284

== ENCOUNTER 2025-03-26 09:07 | Emergency (ER) | payer MEDICAID, SELFPAY ==
[2025-03-26 09:15] VITALS: BP 116/61; PULSE 74; RESP 16; TEMP 36.1; O2SAT 97; BMI 26.6
--- OUTSIDE RECORDS SUMMARY | 2025-03-26 09:32 | XMS_ITS | Clinical Summary ---
Author Organization [employer] Address [address] [facility] [address] [place] [address] Care Team Providers Care Cooling Machine Operator Name Role Phone Gisel Wise MD Primary [...] t he electric, gas, oil or water Animated Speech threatened to shut off services in your [...] AM EDT Narrative 11/10/2024 1:44 PM EDT [address] [place] [address] Mammography Report Signed Patient: Deirdre Dolan MR#: [id number] : 1980 Acct:[id number] Age/Sex: 43 / F ADM Date: 11/02/24 Loc: HO.MAMMO Attending Dr: Gisel Oliveira MD Ordering Physician: Gisel Wise MD Results: 0Incomplete: Needs Additional Imaging Evaluation Date of Service: 11/02/24 Follow Up: Additional Imagi ng Procedure(s): MM tomosynthesis screening BI Accession Number(s): [id number] cc: Gisel Wise MD EXAMINATION: MM SCREENING [...] 11/10/24 1341 DD/ 1150 TD/TT: 11/02/24 1205 Courtroom Deputy Or Calendar Clerk: Procedure Note Donyousuf, Image - 11/10/2024 [facility] [address] [place] [address] Mammography Report Signed Patient: Deirdre Dolan WMR#: [id number] : 1980Acct:[id number] Age/Sex: 43 / FADM Date: 11/02/24 Loc: HO.MAMMO Attending Dr: Gisel Oliveira MD Ordering Physician: Gisel Wise MD Results: 0Incomplete: Needs Additional Imaging Evaluation Date of Service: 11/02/24Follow Up: Additional Imagi ng Procedure(s): MM tomosynthesis screening BI Accession Number(s): [id number] cc: Gisel Wise MD EXAMINATION: MM SCREENING [...] 11/10/24 1341 DD/ 1150 TD/TT: 11/02/24 1205 Courtroom Deputy Or Calendar Clerk: Gisel Oliveira MD IMG BI PROCEDURES Joel maria elena Result - Final * HM PAP/HPV (01/14/2023) Pap Smear 1. NILM 1. NILM HPV Undetected Undetected, Indeterminate , Quantitative, Not Detected Historical Provider HEALTH MAINTENANCE Final Result from Last 3 Months or Most Recently Relevant to Health Maintenance Insurance [employer] Care Teams Cooling Machine Operator Relationship Specialty Start Date End Date Gisel Wise MD [address] [place] [id number] PCP - General Family Medicine 07/08/18
--- OUTSIDE RECORDS SUMMARY | 2025-03-26 09:33 | XMS_ITS | Clinical Summary ---
Author Organization [facility] Address [address] [place] [address] Care Team Providers Care Longwall Shearer Operator Name Role Phone Unavailable Primary Care Provider [...] on file Sexual Orientation Not on file Plan of Treatment Health Maintenance Due Date [...] RESULTING AGENCY - 10/26/2019 12:41 PM EDT [id number] THINPREP PAP, IMAGED: NEGATIVE FOR SQUAMOUS INTRAEPITHELIAL [...] Amanda Gil MD LAB CYTOLOGY ORDERABLES Leonidas al Result HISTORICAL TESTING LAB RESULTING AGENCY from Last 3 Months or Most Recently Relevant to Health Maintenance
--- NOTE | 2025-03-26 11:26 | ED_ITS ---
HPI - General Adult General Chief complaint: Skin/Abscess/Foreign Body Stated complaint: cyst on private Time Seen by Provider: 03/26/25 10:09 Source: patient Mode of arrival: ambulatory Limitations: no limitations History of Present Illness ED Provider: TIMBO QUEEN PA-C HPI narrative: 44 year old female presents to the ED today with concerns of a painful lump between her vagina and buttocks x1 week. Reports soaking in epsom salt at home with some improvement. Notes the area began draining a small amount yesterday. Continues to endorse pain to the area, making it difficult to sit. Admits to history of similar bumps in her groin region requiring treatment with antibiotics - she has never received a specific diagnosis. Denie fever, chills, urinary sx, vaginal discharge. Denies hx DM Related Data Home Medications ?Medication ?Instructions ?Recorded ?Confirmed dextromethorphan IR 45 PO 09/30/24 01/06/25 mg-bupropion ER 105 mg biphasic tablet (Auvelity) quetiapine 25 mg tablet 25 mg PO BEDTIME PRN insomni a 09/30/24 01/06/25 Previous Rx's ?Medication ?Instructions ?Recorded acetaminophen 500 mg capsule 1,000 mg (2 x 500 mg) PO .q8 PRN 10/14/24 fever or pain #30 caps cephalexin 500 mg capsule 500 mg PO BID #10 caps 10/14 fluconazole 150 mg tablet 150 mg PO Q3D 2 doses #2 tab s 10/14/24 ibuprofen 600 mg tablet 600 mg PO Q8H PRN fever or p ain 10/14/24 #30 tabs amoxicillin 875 mg-potassium 1 tab PO BID 7 days #14 t abs 02/23/25 clavulanate 125 mg tablet fluconazole 150 mg tablet 150 mg PO Q3D 2 doses #2 tab s 02/23/25 cephalexin 500 mg capsule 500 mg PO BID 7 days #14 cap s 03/26/25 fluconazole 150 mg tablet 150 mg PO Q3D 2 doses #2 tab s 03/26/25 ibuprofen 600 mg tablet 600 mg PO Q8H PRN pain (scal e 03/26/25 score 4-6) #20 tabs Allergies Allergy/AdvReac Type Severity Reaction Status Date / Time meperidine (From DEMEROL) Allergy Intermediate RASH Verified 03/26/25 09:17 vancomycin (VANCOMYCIN) Allergy Intermediate REDNESS, Verified 03/26/25 09:17 ITCHING, THROAT SWELLS, hives, swelling Review of Systems 2 Review of Systems: Yes all other systems are reviewed and are negative [facility] Past Medical History Attestation statement: The following information was validated with the patient. 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 Skin: Warm, dry, intact. No rashes or lesions. Head: Normocephalic, atraumatic. EENT: Hearing is intact b/l. Conjunctiva clear. PERRLA. EOM intact. Moist mucous membranes.? Cardiac: Chest wall symmetric. RRR Lungs: Normal respiratory effort without accessory muscle use. CTA bilaterally Abdomen: Soft, non-tender, non-distended. No rebound tenderness or guarding. Positive BS x4. Back: No midline spinous or paraspinal tenderness. No step off deformity. : see below. Neuro: AOx3. Normal speech. Ambulating with steady gait. Female genitals images: 2 1. small 0.5 cm area of swelling with active purulent/bloody drainage from center with additional drainage with light manual expression, no surrounding swelling or erythema, no other lesions noted, no rectal involvement. ttp. Medical Decision Making Medical Decision Making MDM Narrative: 44 year old female presents to the ED today with concerns of a painful lump between her vagina and buttocks x1 week. vital signs stable. she is generally well appaering and in NAD. see PE portion for exam findings. Differential diagnosis includes folliculitis, abscess, hidradenitis suppurativa. Lower suspicion for Bartholins cyst v abscess. Unlikely perianal abscess, Rd's gangrene, perirectal abscess, STD Exam is consistent with folliculitis - area is actively draining, easily expressible, no indication for incision/drainage today. Will prophylactically treat with Keflex. Educated on continued manual expression and Epsom salt baths. Patient has remained stable throughout ED visit today. Discussed worrisome signs and symptoms and when to return to the ED. All questions answered at this time. Patient is agreeable with disposition and stable for discharge. Differential Diagnosis Differential Diagnoses: The differential diagnosis associated with the presentation includes as above. Admission/Observation not indicated. External Record Review External record reviewed: Inpatient record Prescription Management I considered prescription management with: Pain Medication, Antibiotic and Other (fluconazole) Social Determinants Patient?s care significantly limited by Social Determinants of Health including: Other Social Determinant of Health Critical Care Time Critical Care Time Critical Care Time: No Discharge Plan Discharge Clinical Impression: Folliculitis Patient Disposition: Home, Self-Care Instructions: Folliculitis (ED) Additional Instructions: Your pain appears to be related to an infected hair follicle. There is a small pimple to the area that is already draining. You do not require incision or drainage at this time. Please continue to apply warm compresses, take hot showers, and keep the area clean. You should also continue to gently express any purulent drainage from the area as we discussed. Please take cephalexin twice daily as prescribed until it is finished. I recommend tylenol/motrin at home as needed for pain/discomfort. Return with any new or worsening symptoms. In the case of an emergency call 911. Prescriptions: New cephalexin 500 mg capsule 500 mg PO BID 7 Days Qty: 14 0RF fluconazole 150 mg tablet 150 mg PO Q3D Qty: 2 0RF ibuprofen 600 mg tablet 600 mg PO Q8H PRN (Reason: pain (scale score 4-6)) Qty: 20 0RF No Action ibuprofen 600 mg tablet 600 mg PO Q8H PRN (Reason: fever or pain) Qty: 30 0RF acetaminophen 500 mg capsule 1,000 mg PO .q8 PRN (Reason: fever or pain) Qty: 30 0RF cephalexin 500 mg capsule 500 mg PO BID Qty: 10 0RF fluconazole 150 mg tablet 150 mg PO Q3D Qty: 2 0RF amoxicillin-pot clavulanate 875-125 mg tablet 1 tab PO BID 7 Days Qty: 14 0RF fluconazole 150 mg tablet 150 mg PO Q3D Qty: 2 0RF Rx Instructions: may repeat second dose 72 hrs after first dose if symptoms persist quetiapine 25 mg tablet 25 mg PO BEDTIME PRN (Reason: insomnia) Auvelity 45-105 mg tablet, IR and ER, biphasic PO Referrals: [facility] [Provider Group] Gisel Wise MD [Primary Care Provider, Internal Medicine] Print Language: Sami
[2025-03-26 12:06] VITALS: BP 116/61; PULSE 74; RESP 16; TEMP 36.1; O2SAT 97
== END 2025-03-26 12:06 | disposition home or self-care (01) ==
PROVIDERS: Emergency Provider Emergency Medicine; PCP Internal Medicine
DX: L73.9 Follicular disorder, unspecified (principal)
CPT/HCPCS: 96372; 99283; 99284; J1885